=== PATIENT | male | born 1950 | race Caucasian/White ===

== ENCOUNTER 2022-06-11 11:00 | Outpatient (RCR) | payer SELFPAY | END 2022-06-11 15:46 | disposition home or self-care (01) | LOC: ANHCPREHAB 11:00 | DX: I50.9 Heart failure, unspecified (principal) | CPT/HCPCS: 99199 ==

== ENCOUNTER 2024-07-27 16:20 | Emergency (ER) | payer OTHER, MEDICARE, SELFPAY ==
--- NOTE | ~2024-07-27 | XR_ITS ---
XR tibia fibula RT 2V Ordering provider: Adryan Jose APRN History: . injury, swelling, pain since yesterday . Comparison: None. FINDINGS: BONES: No acute fracture or dislocation. JOINT SPACES: Normal. SOFT TISSUES: Soft tissue density is seen laterally which measures 13 x 3.2 centimeters. This is most likely a hematoma. IMPRESSION: No acute osseous abnormality right leg. Hematoma or soft tissue mass in the lateral aspect of the leg. Reviewed, dictated and finalized at location A.
[2024-07-27 16:31] VITALS: BP 174/81; PULSE 66; RESP 18; TEMP 36.4; O2SAT 100
[2024-07-27] MEDS: TETANUS/DIPHTHERIA TOXOIDS ADSORB 0.5 ML SYRINGE (*BKC) IM (17:25)
--- NOTE | 2024-07-27 18:30 | ED_ITS ---
HPI - Extremity Injury (Lower) General Chief Complaint: Extremity Injury, Lower Stated Complaint: R Leg Pain Time Seen by Provider: 07/27/24 17:10 Source: patient and RN notes reviewed Mode of arrival: ambulatory Limitations: no limitations History of Present Illness HPI Narrative: 74-year-old male presents Express Care with spouse complaining of a right lower leg injury. 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 Patient denied any apparent pain or injury yesterday. However today he noticed that he has developed bruising and swelling to his right lower leg below the knee. Patient is taking Eliquis for atrial fibrillation. Patient denies any excruciating pain he reports his leg feeling tight and swollen. Patient has also noticed blistering to the bruising. Patient denies any pain behind his leg or any swelling above his knee. Patient denies any numbness or tingling, pain that is out proportion, weakness, or any other injuries. Patient denies any history of blood clots, no recent surgeries. Patient is unsure when his last tetanus shot was up-to-date. Related Data Allergies Allergy/AdvReac Type Severity Reaction Status Date / Time No Known Allergies Allergy Verified 07/27/24 16:28 Review of Systems Review of Systems: CONSTITUTIONAL: Denies fever, chills, or sweats. EYES: Denies visual changes, redness, or discharge. ENT: Denies rhinorrhea, congestion, sore throat, or otalgia. CARDIOVASCULAR: Denies chest pain, palpitations, or edema. RESPIRATORY: Denies cough or dyspnea. GASTROINTESTINAL: Denies abdominal pain, nausea, vomiting, or diarrhea. GENITOURINARY: Denies dysuria or hematuria. SKIN: Denies rash or itching. MUSCULOSKELETAL: Denies back pain, joint pain, or myalgia. Positive for right lower leg injury and swelling. NEUROLOGIC: Denies headache, numbness, or weakness. PSYCHIATRIC: Denies anxiety or depression. All other systems reviewed are negative, except as documented in HPI. [facility] Past Medical History Medical History A-fib CHF (congestive heart failure) Family History Family History Father Alcoholism Social History Social History Smoking packs per day: 1 Smoking cigarettes per day: 20.0 Years smoked: 30 Smoking pack-years: 30.00 Smoking status: Former smoker Tobacco type: cigarettes Smoking end date: 03/25/09 Alcohol intake: current Drinks per week: 2 Alcohol use details: beer and wine Substance use: never Substance use type: does not use Do You Feel Safe in your Home?: Yes Lack of Transportation: No Lack of Food: Never True Current Housing: I Have Housing Concerned About Future Housing: No Difficulty Paying Gas/Electric Bills: No Difficulty Paying for Meds: No Currently Unemployed: No Education: High School Diploma/GED Difficulty w/ Childcare or Family Care: No Living arrangements: with family Occupation/Education: occupation Gender identity (if verbalized by the patient): Male Sexual Orientation (if Verbalized by the Patient): Straight or Heterosexual Comments At the time of my signature, I reviewed and agree with the nursing past medical, surgical, social, and family history. There is no relevant family history pertinent to the patient complaint. Exam Narrative: GENERAL: This is a well-nourished, well-developed adult, in no apparent distress. They are non ill-appearing, nontoxic appearing. HEAD: normocephalic, atraumatic. EYES: Sclera clear/white. Conjunctiva normal. Vision is grossly intact. Extraocular movements intact EARS: External ears normal, Hearing grossly intact. NOSE: External nose normal THROAT: Mucous membranes moist NECK: Number range of motion CARDIOVASCULAR: Regular rate and rhythm RESPIRATORY: My normal respiratory exam SKIN: warm, Dry, intact with no suspicious lesions or rash, good texture and turgor. NEURO: awake, alert, and oriented to person, place and time. There were no obvious focal neurologic abnormalities. EXTREMITIES: Right lower leg: Right calf circumference 45 cm. Left calf circumference 44 cm. Right lower leg: There is edema that is nonpitting below the knee to the patient's right lower leg extending into the right ankle. Bruising to the distal lateral surface of the lower leg. Ecchymosis present in multiple small blistering coming from the bruising. Mild tenderness to palpation to the ecchymosis. Blisters are intact. No obvious deformity to the leg. Pedal pulse 2 +and palpable. Neurovascular status intact distal to the injury. No swelling above the knee. No palpable cord. BACK: Nontender without deformity. No CVA tenderness. Course Course Emergency Course: Portions of this record may have been created with voice recognition software Level of Care: Express Care Visit Vital Signs Vital signs: Vital Signs Temperature 97.6 F 07/27/24 16:31 Pulse Rate 66 07/27/24 16:31 Respiratory Rate 18 07/27/24 16:31 Blood Pressure 174/81 H 07/27/24 16:31 Pulse Oximetry 100 07/27/24 16:31 Oxygen Delivery Room Air 07/27/24 16:31 Temperature 97.6 F 07/27/24 16:31 Pulse Rate 66 07/27/24 16:31 Respiratory Rate 18 07/27/24 16:31 Blood Pressure 174/81 H 07/27/24 16:31 Pulse Oximetry 100 07/27/24 16:31 Oxygen Delivery Room Air 07/27/24 16:31 Reviewed MDM - Extremity Injury (Lower) MDM Narrative Medical decision making narrative: Wells criteria score of -2. Low suspicion for DVT or compartment syndrome. Neurovascular status is intact distal to the injury, pedal pulses 2+ palpable. Patient is having no excruciating pain or pain that is out of proportion to injury to his lower right lower leg. Patient denies any paresthesia, diminished sensation, or weakness to the extremity. X-ray is negative for any fractures, hematoma is noted on x-ray. Likely the swelling is worsening due to his Eliquis. Discussed physical exam findings. Advised supportive measures and signs/symptoms to go to the ER. Pt is appropriate for outpt treatment and f/u. Differential Diagnosis Differential diagnosis: Likely other (Compartment syndrome, tibia/fibula fracture, hematoma) Imaging Data Radiologist's impression: ITS Impressions Tibia/Fibula X-Ray 07/27/24 17:00 IMPRESSION: No acute osseous abnormality right leg. Hematoma or soft tissue mass in the lateral aspect of the leg. Critical Care Time Critical Care Time Critical Care Time: No Discharge Plan Discharge Clinical Impression: Injury of leg, right Qualifiers: Encounter type: initial encounter Qualified Code(s): S89.91XA - Unspecified injury of right lower leg, initial encounter Patient Disposition: Home Condition: Stable Instructions: Hematoma (ED) Additional Instructions: Your x-rays negative for any fractures or acute findings. Please wear compression stocking to help with swelling. Keep the legs elevated at night or when you are not walking around. The bruising and swelling is likely because she take Eliquis. Please take Tylenol as needed for pain. You may ice the affected extremity 20 minutes on and 20 minutes off. Please cover the blisters with a nonadherent dressing. If they pop please make sure they are covered in apply antibiotic ointment to it to prevent further infection. Review developed excruciating pain, worsening swelling, pain behind your leg, your entire leg becomes swollen, you develop shortness of breath, chest pain, fevers or discharge please go to the ER immediately. Follow-up with primary care provider in 3-5 days. Your tetanus was updated today. Patient Language: Luxembourgish Prescriptions: No Action acyclovir 5 % cream 1 applic topical DAILY PRN (Reason: outbreaks) Qty: 5 5RF betamethasone valerate 0.1 % ointment 1 applic topical DAILY PRN (Reason: rash) Qty: 45 3RF Eliquis 5 mg tablet 5 mg PO BID Qty: 90 1RF cholecalciferol (vitamin D3) 1,250 mcg (50,000 unit) capsule See Rx Instructions .ROUTE .COMPLEX Qty: 12 1RF Dose Instruction: TAKE 1 CAPSULE BY MOUTH WEEKLY Rx Instructions: TAKE 1 CAPSULE BY MOUTH WEEKLY metoprolol succinate 25 mg tablet extended release 24 hr See Rx Instructions .ROUTE .COMPLEX Qty: 90 1RF Dose Instruction: TAKE 1 TABLET BY MOUTH EVERYDAY AT BEDTIME Rx Instructions: TAKE 1 TABLET BY MOUTH EVERYDAY AT BEDTIME atorvastatin 40 mg tablet 40 mg PO HS Qty: 90 1RF losartan 25 mg tablet 25 mg PO DAILY Qty: 90 1RF Follow-up/Referrals: PHYSICIAN,GLASS FURNACE OPERATOR [Primary Care Provider] - Stand Alone Forms: Work/School Release IP Time of Disposition: 17:18
== END 2024-07-27 17:43 | disposition home or self-care (01) ==
DX: S80.11XA Contusion of right lower leg, initial encounter (principal); W22.09XA Striking against other stationary object, initial encounter; Y99.0 Civilian activity done for income or pay; Z23 Encounter for immunization; I48.91 Unspecified atrial fibrillation; I50.9 Heart failure, unspecified; Z79.01 Long term (current) use of anticoagulants; Z87.891 Personal history of nicotine dependence
CPT/HCPCS: 73590; 90471; 90714; 99213; G0463

== ENCOUNTER 2024-07-29 13:22 | Emergency (ER) | payer MEDICARE, SELFPAY ==
--- OUTSIDE RECORDS SUMMARY | 2024-07-29 13:34 | XMS_ITS | Patient Health Record ---
Author Organization UNLISTED FACILITY Address [address] [facility] [address] [address] Care Team Providers Care Accounting Specialist Name Role Phone Unpanelled Primary Care Provider Unavailabl e Reason For Referral No Information Medications Medication SIG (Take, Route, Frequency, Duration) Notes Start Date End Date Status Naproxen 500MG Tablet Naproxen 500MG TabletOriginal MedicationNaproxen 500MG Tablet *Reorder from [employer] for eRx and Interaction Alerts* 07/24/2019 Active Fluticasone Propionate 50MCGACT Suspension Fluticasone Propionate 50MCGACT SuspensionOriginal MedicationFluticasone Propionate 50MCGACT Suspension *Reorder from [employer] for eRx and Interaction Alerts* 07/24/2019 Active Problems Problem Type SNOMED Code ICD Code Onset Dates Problem Status W/U Status Risk Notes Problem 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) 0 Active confirmed Problem Polyp of colon (11303458) Polyp of colon (K63.5) 0 Active confirmed Problem Tremor (44272840) Tremor, unspecified (R25.1) 0 Active confirmed Problem Mixed hyperlipidemia (448933043) Hyperlipidemia, mixed (E78.2) 0 Active confirmed Problem Headache (48839634) Headache, unspecified (R51.9) 0 Active confirmed Problem Tension-type headache (114075210) Headache, tension (G44.209) 0 Active confirmed Problem Allergic rhinitis (00614653) Other allergic rhinitis (J30.8) 0 Active confirmed Plan Of Treatment No Information Insurance Providers Payer Name Payer Address Payer Phone Subscriber Number Group Number Insured Name Patient Relationship to Insured Coverage Start Date Coverage End Date [facility] [employer] [address] SIVA HENDERSON [id number] MATI HENDERSON Self - patient is the insured
--- OUTSIDE RECORDS SUMMARY | 2024-07-29 13:34 | XMS_ITS | Clinical Summary ---
Author Organization [facility] [employer] Address [address] [place] [address] Care Team Providers Care Director Surgical Name Role Phone Sundeep Whitfield MD Primary Care Provider [phone] Source Comments [facility] [employer],non-owned Affiliates and Associated Physician Practices is amultiple site organization consisting of ambulatory clinics and hospital sitesin [place], [place], [place] and [place]. This disclosure is being madepursuant to the Care Everywhere program and may not contain all information available regarding this patient. Last updated 17.[facility] [employer] Allergies No known active allergies Medications * Be aware that medications may not be up to date on this document. Alwaysverify current medications with the patient. Multiple Vitamin (MULTI-VITAMIN DAILY PO) Take 1 capsule by mouth once daily Active betamethasone valerate (Valisone) 0.1 % creamIndications:Ot her psoriasis Apply to affected area 2 times daily 45 g 4 4 Active atorvastatin (Lipitor) 40 MG tabletIndications:H yperlipidemia, unspecified hyperlipidemia type Take 1 (one) tablet by mouth once daily 90 tablet 1 4 Active losartan (Cozaar) 25 MG tabletIndications:P ersistent atrial fibrillation (HCC) Take 1 (one) tablet by mouth once daily 90 tablet 1 4 Active metoprolol succinate XL 24hr (Toprol XL) 25 MG tabletIndications:P ersistent atrial fibrillation (HCC) Take 1 (one) tablet by mouth at bedtime 90 tablet 1 4 Active naproxen (Naprosyn) 500 MG tablet TAKE 1 (ONE) TABLET BY MOUTH NEEDED (HEADACHE) 30 tablet 1 4 Active vitamin D, ergocalciferol, (Drisdol) 1.25 MG (16100 UT) capsule Take 1 (one) capsule by mouth every 30 days Active Turmeric (QC TUMERIC COMPLEX PO) Active apixaban (Eliquis) 5 MG tablet Take 1 (one) tablet by mouth 2 times daily 20 tablet 5 Active furosemide (Lasix) 40 MG tabletIndications:C hronic HFrEF (heart failure with reduced ejection fraction) (HCC) Take 0.5 (one-half) tablet by mouth as needed 15 tablet 6 5 Active Active Problems Problem Noted Date Diagnosed Date S/P ablation of atrial flutter 01/06/2024 Senile purpura 05/20/2023 Atherosclerosis of aorta 10/03/2022 Typical atrial flutter 11/21/2021 Chronic HFrEF (heart failure with reduced ejection fraction) 11/21/2021 Chronic anticoagulation 11/21/2021 On amiodarone therapy 11/21/2021 Persistent atrial fibrillation 10/31/2021 Atrial fibrillation with RVR 10/31/2021 Herpes simplex without complication 04/07/2021 Hypertrophy of prostate with out urinary obstruction and other lower urinary tract symptoms (LUTS) 04/07/2021 Other and unspecified hyperlipidemia 04/07/2021 Other psoriasis 04/07/2021 Tobacco user 04/07/2021 Resolved Problems Problem Noted Date Diagnosed Date Resolved Date Presence of heart assist device 10/03/2022 05/18/2024 Encounters Date Type Department Care Team Description 05/18/2024 11:50 AM ENGINE REPAIRER Office Visit [facility] [address] [place] [id number] Martin Collins MD Chronic systolic heart failure (Primary Dx); Persistent atrial fibrillation; Chronic anticoagulation; Mixed hyperlipidemia; S/P ablation of atrial fibrillation; Heart failure with improved ejection fraction (HFimpEF); Chronic HFrEF (heart failure with reduced ejection fraction) 05/04/2024 9:38 AM ENGINE REPAIRER - 05/04/2024 11:59 PM ENGINE REPAIRER Hospital Encounter [facility] [address] [address] Martin Collins MD Discharge Disposition: Home or Self Care from Last 3 Months Immunizations Immunization Administration Dates Next Due Covid Pfizer primary monoval ent 12+ yr 0.3mL Purple cap 01/10/2021,06/03/2020,05/06/2020 HEP A VACCINE, ADULT 05/04/2005 HEP A/HEP B 03/02/2022 INFLUENZA VACCINE 02/05/2022, 1,02/27/2010,2008 INFLUENZA VACCINE, ADJUVANTE D, QUADR. (FLUAD QUADRIVALENT; 65Y+) (AIIV4) 02/06/2022,01/10/2021 PNEUMOCOCCAL PPSV23 11/29/2018 PNEUMOCOCCAL PPV VACCINE 10/20/2008 Pneumococcal Pcv13 Conj 12/22/2016 ZOSTER HISTORIC VACCINE 01/31/2019 Zoster Hzv Vacc Recombinant Inj Im 11/29/2018 Family History Medical History Relation Name Comments Leukemia Father None Known Mother Relation Name Status Comments Brother Alive Father Mother Sister Alive Social History Tobacco Use Types Packs/Day Years Used Date Smoking Tobacco: Former Cigarettes 1 25 1 - 01/10/2009 Smokeless Tobacco: Never Tobacco Cessation:Counseling Given: Not Answered Alcohol Use Standard Drinks/Week Comments Yes 3 (1 standard drink = 0.6 oz pur e alcohol) PHQ-2 Answer Date Recorded Patient Health Questionnaire-2 Score 0 05/20/2023 Hunger Vital Sign Answer Date Recorded Within the past 12 months, y ou worried that your food would run out before you got the money to buy more. Never true 01/18/20 22 Within the past 12 months, t he food you bought just didn't last and you didn't have money to get more. 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 Not on file Not on file Not on file Last Filed Vital Signs Vital Sign Reading Time Taken Comments Blood Pressure 136/68 05/18/2024 1:12 PM ENGINE REPAIRER Pulse 62 05/18/2024 1:12 PM ENGINE REPAIRER Temperature 36.5 C (97.7 F) 01/06/2024 11:32 AM CDT Respiratory Rate 18 05/20/2023 11:3 5 AM ENGINE REPAIRER Oxygen Saturation 97% 05/18/2024 1:12 PM ENGINE REPAIRER Inhaled Oxygen Concentration - - Weight 107.1 kg (236 lb 3.2 oz) 05/18/2024 1:12 PM ENGINE REPAIRER Height 175.3 cm (5' 9 ) 05/18/2024 1:12 PM ENGINE REPAIRER Body Mass Index 34.88 05/18/2024 1:12 PM ENGINE REPAIRER Plan of Treatment Upcoming Encounters Date Type Department Care Team (Late st Contact Info) Description 11/16/2024 10:00 AM CDT Office Visit [facility] [address] [place] [address] Beth Bain, [employer] [address] [facility] [address] [place] [address] Health Maintenance Due Date Last Done Comments COLOGUARD (AGES 45-75) - COLON CA SCREENING 1950 CT COLONOGRAPHY - COLON CA SCREENING 1950 FIT - COLON CA SCREENING 1950 FLEX SIG - COLON CA SCREENING 1950 HEPATITIS C SCREENING 04/25/1969 DTAP/TDAP/TD VACCINES (1 - Tdap) 1970 Respiratory Syncytial Virus (RSV) Vaccine Pt: or over 60 yrs (1 - Risk 60-74 years 1-dose series) 2011 HEPATITIS B VACCINE (2 of 3 - Hep B Twinrix 3-dose series) 03/30/2022 03/02/2022 COVID-19 VACCINE (4 - season) 2023 01/10/2021, 06/03/2020, 05/06/2020 DEPRESSION SCREENING 03/25/2024 05/20/2023, 10/03/2022, 07/21/2021 MEDICARE AWV CALENDAR YEAR 2024 05/20/2023, 10/03/2022, 07/21/2021, Additional history exists COLON MONITORING 10/19/2026 10/19/2016 COLONOSCOPY - COLON CA SCREENING 10/19/2026 10/19/2016 Colorectal Cancer Screening 10/19/2026 SCREENING FOR DIABETES 05/20/2027 5, 01/10/2024, 12/10/2023, Additional history exists PNEUMOCOCCAL VACCINE 50+ Completed 019, 12/22/2016, 10/20/2008 ZOSTER VACCINE Completed 01/31/2019, 11/29/2018 AAA SCREENING Completed 10/31/2022 INFLUENZA VACCINE Completed 11/26/2023, , 02/06/2022, Additional history exists HIB VACCINE Aged Out No longer eligi ble based on patient's age to complete this topic HPV VACCINE Aged Out No longer eligi ble based on patient's age to complete this topic MENINGOCOCCAL (Group B) VACCINE SHARED DECISION-MAKING Aged Out No longer eligible based on patient's age to complete this topic MENINGOCOCCAL GROUPS A/C/Y/W VACCINE Aged Out No longer eligible based on patient's age to complete this topic Procedures Procedure Name Priority Date/Time Associated Diagnosis Comments BASIC METABOLIC PANEL (CALCIUM TOTAL) Routine 05/20/2024 8:03 AM ENGINE REPAIRER Chronic systolic heart failure Persistent atrial fibrillation Chronic anticoagulation Mixed hyperlipidemia S/P ablation of atrial fibrillation Heart failure with improved ejection fraction (HFimpEF) Chronic HFrEF (heart failure with reduced ejection fraction) ECHO COMPLETE Routine 05/04/2024 10:39 AM ENGINE REPAIRER Chronic systolic heart failure Persistent atrial fibrillation Chronic anticoagulation Mixed hyperlipidemia AAA SCREENING Routine 10/31/2022 11:3 6 AM CDT Screening for abdominal aortic aneurysm COLONOSCOPY 10/19/2016 from Last 3 Months or Most Recently Relevant to Health Maintenance Results * (ABNORMAL) BASIC METABOLIC PANEL (CALCIUM TOTAL) (05/20/2024 8:03 AM ENGINE REPAIRER) Glucose 105(H) 70 - 99 mg/dL [facility] INSURANCE BILL BUN 17 8 - 27 mg/dL [facility] INSURANCE BILL Creatinine 0.89 0.76 - 1.27 mg/dL [facility] INSURANCE BILL eGFR by CKD-EPI 90 >59 mL/min/1.7 3 [facility] INSURANCE BILL BUN/Creatinine Ratio 19 10 - 24 [facility] INSURANCE BILL Sodium 141 134 - 144 mmol/L [facility] INSURANCE BILL Potassium 4.4 3.5 - 5.2 mmol/L [facility] INSURANCE BILL Chloride 105 96 - 106 mmol/L [facility] INSURANCE BILL CO2 22 20 - 29 mmol/L [facility] INSURANCE BILL Calcium 9.3 8.6 - 10.2 mg/dL [facility] INSURANCE BILL Blood BLOOD SPECIMEN / Unknown 05/20/2024 8:03 AM ENGINE REPAIRER 05/20/2024 Narrative [facility] INSURANCE BILL - 05/21/2024 3:06 AM ENGINE REPAIRER Performed at: 01 - [facility] [address] [place], [place] [id number] [employer] Supervisor: Candido Benavidez PhD, Phone: [phone] Martin Collins MD LAB - CHEMISTRY ORDERABLES Fi nal Result [facility] INSURANCE BILL [address] [place] [address] * ECHO COMPLETE (05/04/2024 10:39 AM ENGINE REPAIRER) IVSd 2D 0.871 cm SSM CV FUJ I PACS LVIDd 4.88 cm SSM CV FUJ I PACS LVIDs 3.784 cm SSM CV FUJ I PACS LVOT diam 2.525 cm SSM CV FUJ I PACS LVPWd 0.877 cm SSM CV FUJ I PACS LV biplane EF 63.532 % SSM CV FUJI PACS LV A2C EF 61.371 % SSM CV FUJ I PACS LV A4C EF 65.924 % SSM CV FUJ I PACS LV EDV A2C 110.643 ml SSM CV FU JI PACS LV EDV A4C 117.309 ml SSM CV FU JI PACS LV ESV A2C 42.74 ml SSM CV FU JI PACS LV ESV A4C 39.975 ml SSM CV FU JI PACS LVOT pk reji 72.81 cm/s SSM CV F UJI PACS LVOT VTI 16.562 cm SSM CV FUJ I PACS LA size 4.447 cm SSM CV FUJ I PACS LA vol BP 97.964 ml SSM CV FUJ I PACS AV mn grad 1.389 mmHg SSM CV FU JI PACS AV pk reji 83.806 cm/s SSM CV FUJ I PACS AV VTI 18.609 cm SSM CV FUJ I PACS MV A pk reji 52.293 cm/s SSM CV F UJI PACS MV E pk reji 69.697 cm/s SSM CV F UJI PACS MV E' lateral reji 9.556 cm/s SS M CV FUJI PACS PV pk reji 58.956 cm/s SSM CV FUJ I PACS TAPSE 2.157 cm SSM CV FUJ I PACS TR pk reji 225.217 cm/s SSM CV FUJ I PACS Ascending aorta 3.315 cm SSM CV FUJI PACS IVC Diam Expiration 2.62 cm SSM CV FUJI PACS LA vol index 0.042 l/m SSM CV FUJI PACS Dimensionless Index 0.89 unitless SSM CV FUJI PACS Myocardial strain charge 2 unitless SSM CV FUJI PACS Anatomical Region Laterality Modality Ultrasound 05/04/2024 9:57 AM ENGINE REPAIRER Narrative 05/04/2024 1:25 PM ENGINE REPAIRER Summary * The left ventricle is normal in size, with normal systolic function and an estimated ejection fraction of 64 % by biplane method of disks. Left ventricular wall motion is normal. * The left ventricular diastolic function is normal. * Right ventricle is normal in size with normal systolic function. * The pulmonary artery systolic pressure is normal, 28 mmHg. * There is mild mitral valve regurgitation. Patient Info Name: Kumar Weaver Age: 74 years : 1950 Gender: Male Ht: 69 in Wt: 235 lb BSA: 2.32 m2 HR: 53 bpm BP: 138 / 74 mmHg Heart Rhythm: Ectopy Exam Date: 05/04/2024 9:57 AM Patient Status: O/P Study Site: [facility] Primary Location: [facility] EStudy Info Technical Quality: Adequate Exam Type: ECHO COMPLETE Indications I50.22 - Chronic systolic heart failure (HCC) E78.2 - Mixed hyperlipidemia Z79.01 - Chronic anticoagulation I48.19 - Persistent atrial fibrillation (HCC) Procedure(s) * A complete 2D, color Doppler, spectral Doppler, and M-Mode transthoracic echocardiogram was performed. Staff Referring Physician: Martin Collins Ordering Provider: Martin Collins Attending Physician: Martin Collins Leaf Tier: Jan Burks Left Ventricle The left ventricle is normal in size. Left ventricular systolic function is normal with an estimated ejection fraction of 64 % by biplane method of disks. The left ventricular mass is normal. Left ventricular segmental wall motion is normal. The left ventricular diastolic function is normal. Right Ventricle The right ventricle is normal in size. Right ventricular systolic function is normal. Left Atrium The left atrium is normal in size with a left atrial volume index of 42 ml/m2 by BP MOD. Right Atrium The right atrium is normal in size. Atrial Septum Intact interatrial septum visualized by 2D and color Doppler imaging. Aortic Valve The aortic valve is trileaflet. There is no aortic valve stenosis. There is no aortic valve regurgitation. Pulmonic Valve The pulmonic valve is normal. There is no pulmonic valve stenosis. There is no pulmonic regurgitation. Mitral Valve The mitral valve is normal. There is no mitral valve stenosis. There is mild mitral valve regurgitation. Tricuspid Valve The tricuspid valve is normal. There is no tricuspid valve regurgitation. The pulmonary artery systolic pressure is normal, 28 mmHg. Inferior Vena Cava The inferior vena cava is dilated (> 2.1 cm). There is > 50% collapse of the IVC upon inspiration with an estimated right atrial pressure of 8 mmHg. Pericardium/Pleural There is no pericardial effusion. Aorta The aortic root at the sinus of Valsalva is normal in size. The ascending aorta is normal in size. Measurements Left Ventricular Outflow Tract Name Value Normal LVOT 2D LVOT Diameter 2.5 cm LVOT Area 5.0 cm2 LVOT Doppler LVOT Peak Velocity 0.7 m/s LVOT Peak Gradient 2 mmHg LVOT Mean Velocity 49.17 cm/s LVOT Mean Gradient 1 mmHg LVOT VTI 16.6 cm LVOT VTI/AV VTI Ratio 0.9 LVOT Stroke Volume 83 ml LVOT Stroke Volume Index 36 ml/m2 35-58 LVOT CO 14.8 l/min LVOT CI 6.4 l/min/m2 Pulmonic Valve Name Value Normal PV Doppler PV Peak Velocity 0.6 m/s PV Peak Gradient 1 mmHg PV Regurgitation Doppler GA End Diastolic Gradient 1 mmHg Mitral Valve Name Value Normal MV Diastolic Function MV E Peak Velocity 0.7 m/sec MV A Peak Velocity 0.5 m/sec MV E/A 1.3 MV Decel Time (PW) 196 ms MV Annular TDI MV Septal e' Velocity 10 cm/s >=8 MV E/e' (Septal) 7 <=8 MV Lateral e' Velocity 10 cm/s >=10 MV E/e' (Lateral) 7 <=8 MV e' Average 10 cm/s MV E/e' (Average) 7 Tricuspid Valve Name Value Normal TV Regurgitation Doppler TR Peak Velocity 2.3 m/s TR Peak Gradient 20 mmHg Estimated PAP/RSVP RA Pressure 8 mmHg <=5 PA Systolic Pressure 28 mmHg <35 RV Systolic Pressure 28 mmHg <36 TV Annular TDI TV Lateral Sarahy s' Velocity 16 cm/s 10-19 Pulmonary Vessels Name Value Normal Pulmonary Artery Doppler PA End Diastolic Pressure for GA 9 mmHg Aorta Name Value Normal Ascending Aorta Ao Root Diameter (2D) 3.6 cm Ao Root Diam Index (2D) 1.5 cm/m2 Asc Ao Diameter 3.3 cm 2.2-3.8 Asc Ao Diameter Index 1.4 cm/m2 1.1-1.9 Venous Name Value Normal IVC/SVC IVC Diameter 2.6 cm <=2.1 Aortic Valve Name Value Normal AV Doppler AV Peak Velocity 0.84 m/s AV Peak Gradient 3 mmHg AV Mean Gradient 1 mmHg AV VTI 19 cm AV Area (Cont Eq VTI) 4.46 cm2 >=2.00 AV Area (Cont Eq Reji) 4.35 cm2 AV DI (VTI) 0.89 AV DI (Reji) 0.87 AV Regurgitation 2D LVOT Area 5.00 cm2 Ventricles Name Value Normal LV Dimensions 2D/MM IVS Diastolic Thickness (2D) 0.9 cm 0.6-1.0 LVID Diastole (2D) 4.9 cm 4.2-5.8 LVPW Diastolic Thickness (2D) 0.9 cm 0.6-1.0 LVID Systole (2D) 3.8 cm 2.5-4.0 LV Mass (2D Cubed) 146 g 88-224 LV Mass Index (2D Cubed) 63 g/m2 49-115 Relative Wall Thickness (2D) 0.36 <=0.42 LV Fractional Shortening/Ejection Fraction 2D/MM LV Fractional Shortening (2D) 22 % 25-43 LV EF (2D Teichgildaz) 45 % 52-72 LV Diastolic Volume (4C MOD) 117 ml LV EF (4C MOD) 66 % LV Diastolic Volume (2C MOD) 111 ml LV EF (2C MOD) 61 % LV Diastolic Volume (BP MOD) 118 ml 62-150 LV Diastolic Volume Index (BP MOD) 51 ml/m2 34-74 LV Systolic Volume (BP MOD) 43 ml 21-61 LV Systolic Volume Index (BP MOD) 19 ml/m2 11-31 LV EF (BP MOD) 64 % 52-72 LV Diastolic Length (4C) 9.0 cm LV Systolic Length (4C) 6.9 cm LV Stroke Volume (4C MOD) 77 ml RV Dimensions 2D/MM TAPSE 2.2 cm >=1.7 Atria Name Value Normal LA Dimensions LA Dimension (2D) 4.4 cm 3.0-4.1 LA Dimen Index (2D) 1.9 cm/m2 LA Volume (BP MOD) 98 ml LA Volume Index (BP MOD) 42 ml/m2 16-34 Report Signatures Finalized by Pk Lehman on 05/04/2024 01:25 PM Procedure Note Pk Lehman MD - 05/05/2024 Summary * The left ventricle is normal in size, with normal systolic functionand an estimated ejection fraction of 64 % by biplane method of disks. Left ventricular wall motion is normal. * The left ventricular diastolic function is normal. * Right ventricle is normal in size with normal systolic function. * The pulmonary artery systolic pressure is normal, 28 mmHg. * There is mild mitral valve regurgitation. Patient Info Name: Kumar Weaver Age: 74 years : 1950 Gender: Male Ht: 69 in Wt: 235 lb BSA: 2.32 m2 HR: 53 bpm BP: 138 / 74 mmHg Heart Rhythm: Ectopy Exam Date: 05/04/2024 9:57 AM Patient Status: O/P Study Site: [facility] Primary Location: [facility] EStudy Info Technical Quality: Adequate Exam Type: ECHO COMPLETE Indications I50.22 - Chronic systolic heart failure (HCC) E78.2 - Mixed hyperlipidemia Z79.01 - Chronic anticoagulation I48.19 - Persistent atrial fibrillation (HCC) Procedure(s) * A complete 2D, color Doppler, spectral Doppler, and M-Modetransthoracic echocardiogram was performed. Staff Referring Physician: Martin Collins Ordering Provider: Martin Collins Attending Physician: Martin Collins Leaf Tier: Jan Burks Left Ventricle The left ventricle is normal in size. Left ventricular systolic functionis normal with an estimated ejection fraction of 64 % by biplane method ofdisks. The left ventricular mass is normal. Left ventricular segmental wallmotion is normal. The left ventricular diastolic function is normal. Right Ventricle The right ventricle is normal in size. Right ventricular systolicfunction is normal. Left Atrium The left atrium is normal in size with a left atrial volume index of42 ml/m2 by BP MOD. Right Atrium The right atrium is normal in size. Atrial Septum Intact interatrial septum visualized by 2D and color Doppler imaging. Aortic Valve The aortic valve is trileaflet. There is no aortic valve stenosis. Thereis no aortic valve regurgitation. Pulmonic Valve The pulmonic valve is normal. There is no pulmonic valve stenosis. Thereis no pulmonic regurgitation. Mitral Valve The mitral valve is normal. There is no mitral valve stenosis. There ismild mitral valve regurgitation. Tricuspid Valve The tricuspid valve is normal. There is no tricuspid valveregurgitation. The pulmonary artery systolic pressure is normal, 28 mmHg. Inferior Vena Cava The inferior vena cava is dilated (> 2.1 cm). There is > 50% collapse ofthe IVC upon inspiration with an estimated right atrial pressure of 8 mmHg. Pericardium/Pleural There is no pericardial effusion. Aorta The aortic root at the sinus of Valsalva is normal in size. Theascending aorta is normal in size. Measurements Left Ventricular Outflow Tract Name Value Normal LVOT 2D LVOT Diameter 2.5 cm LVOT Area 5.0 cm2 LVOT Doppler LVOT Peak Velocity 0.7 m/s LVOT Peak Gradient 2 mmHg LVOT Mean Velocity 49.17 cm/s LVOT Mean Gradient 1 mmHg LVOT VTI 16.6 cm LVOT VTI/AV VTI Ratio 0.9 LVOT Stroke Volume 83 ml LVOT Stroke Volume Index 36 ml/m2 35-58 LVOT CO 14.8 l/min LVOT CI 6.4 l/min/m2 Pulmonic Valve Name Value Normal PV Doppler PV Peak Velocity 0.6 m/s PV Peak Gradient 1 mmHg PV Regurgitation Doppler GA End Diastolic Gradient 1 mmHg Mitral Valve Name Value Normal MV Diastolic Function MV E Peak Velocity 0.7 m/sec MV A Peak Velocity 0.5 m/sec MV E/A 1.3 MV Decel Time (PW) 196 ms MV Annular TDI MV Septal e' Velocity 10 cm/s >=8 MV E/e' (Septal) 7 <=8 MV Lateral e' Velocity 10 cm/s >=10 MV E/e' (Lateral) 7 <=8 MV e' Average 10 cm/s MV E/e' (Average) 7 Tricuspid Valve Name Value Normal TV Regurgitation Doppler TR Peak Velocity 2.3 m/s TR Peak Gradient 20 mmHg Estimated PAP/RSVP RA Pressure 8 mmHg <=5 PA Systolic Pressure 28 mmHg <35 RV Systolic Pressure 28 mmHg <36 TV Annular TDI TV Lateral Sarahy s' Velocity 16 cm/s 10-19 Pulmonary Vessels Name Value Normal Pulmonary Artery Doppler PA End Diastolic Pressure for GA 9 mmHg Aorta Name Value Normal Ascending Aorta Ao Root Diameter (2D) 3.6 cm Ao Root Diam Index (2D) 1.5 cm/m2 Asc Ao Diameter 3.3 cm 2.2-3.8 Asc Ao Diameter Index 1.4 cm/m2 1.1-1.9 Venous Name Value Normal IVC/SVC IVC Diameter 2.6 cm <=2.1 Aortic Valve Name Value Normal AV Doppler AV Peak Velocity 0.84 m/s AV Peak Gradient 3 mmHg AV Mean Gradient 1 mmHg AV VTI 19 cm AV Area (Cont Eq VTI) 4.46 cm2 >=2.00 AV Area (Cont Eq Reji) 4.35 cm2 AV DI (VTI) 0.89 AV DI (Reji) 0.87 AV Regurgitation 2D LVOT Area 5.00 cm2 Ventricles Name Value Normal LV Dimensions 2D/MM IVS Diastolic Thickness (2D) 0.9 cm 0.6-1.0 LVID Diastole (2D) 4.9 cm 4.2-5.8 LVPW Diastolic Thickness (2D) 0.9 cm 0.6-1.0 LVID Systole (2D) 3.8 cm 2.5-4.0 LV Mass (2D Cubed) 146 g 88-224 LV Mass Index (2D Cubed) 63 g/m2 49-115 Relative Wall Thickness (2D) 0.36 <=0.42 LV Fractional Shortening/Ejection Fraction 2D/MM LV Fractional Shortening (2D) 22 % 25-43 LV EF (2D Teicholz) 45 % 52-72 LV Diastolic Volume (4C MOD) 117 ml LV EF (4C MOD) 66 % LV Diastolic Volume (2C MOD) 111 ml LV EF (2C MOD) 61 % LV Diastolic Volume (BP MOD) 118 ml 62-150 LV Diastolic Volume Index (BP MOD) 51 ml/m2 34-74 LV Systolic Volume (BP MOD) 43 ml 21-61 LV Systolic Volume Index (BP MOD) 19 ml/m2 11-31 LV EF (BP MOD) 64 % 52-72 LV Diastolic Length (4C) 9.0 cm LV Systolic Length (4C) 6.9 cm LV Stroke Volume (4C MOD) 77 ml RV Dimensions 2D/MM TAPSE 2.2 cm >=1.7 Atria Name Value Normal LA Dimensions LA Dimension (2D) 4.4 cm 3.0-4.1 LA Dimen Index (2D) 1.9 cm/m2 LA Volume (BP MOD) 98 ml LA Volume Index (BP MOD) 42 ml/m2 16-34 Report Signatures Finalized by Pk Lehman on 05/04/2024 01:25 PM Martin Collins MD ECHO CUPID Final Result * US AAA SCREENING (10/31/2022 11:36 AM CDT) Anatomical Region Laterality Modality Abdomen Ultrasound 10/31/2022 11:4 1 AM CDT Impressions 10/31/2022 11:50 AM CDT IMPRESSION: Mild atherosclerosis with no aneurysm, dissection or other abnormality identified. > Interpreting Provider: Manjinder Bueno MD on 10/31/2022 11:50 AM Narrative 10/31/2022 11:50 AM CDT PROCEDURE: US AAA SCREENING, DATE/TIME OF EXAM: 10/31/2022 11:36 AM, LOCATION [facility] INDICATION: Z13.6: Encounter for screening for cardiovascular disorders ADDITIONAL CLINICAL INFORMATION: Ordering Provider Reason For Exam: Technologist Note: Additional: ULTRASOUND ABDOMINAL AORTA (RETROPERITONEAL, LIMITED): History: Screening for AAA. Technique: Ultrasound evaluation of the abdominal aorta was performed on 10/31/2022. No relevant prior study is available. Findings: Mild atherosclerosis is seen with no aneurysm or other findings to suggest leakage or dissection. Cross-sectional diameters measure: Aorta: 2.5 x 2.4 cm proximally. 2.4 x 2.2 cm in the midportion. 2.3 x 2.2 cm in the distal aspect. Iliac arteries: 1.4 x 1.0 cm on the right. 1.4 x 1.1 cm on the left. Procedure Note Manjinder Bueno MD - 10/31/2022 PROCEDURE: US AAA SCREENING, DATE/TIME OF EXAM: 10/31/2022 11:36 AM, LOCATION [facility] INDICATION: Z13.6: Encounter for screening for cardiovascular disorders ADDITIONAL CLINICAL INFORMATION: Ordering Provider Reason For Exam: Technologist Note: Additional: ULTRASOUND ABDOMINAL AORTA (RETROPERITONEAL, LIMITED): History: Screening for AAA. Technique: Ultrasound evaluation of the abdominal aorta was performed on 10/31/2022. No relevant prior study is available. Findings: Mild atherosclerosis is seen with no aneurysm or other findings tosuggest leakage or dissection. Cross-sectional diameters measure: Aorta: 2.5 x 2.4 cm proximally. 2.4 x 2.2 cm in the midportion. 2.3 x 2.2 cm in the distal aspect. Iliac arteries: 1.4 x 1.0 cm on the right. 1.4 x 1.1 cm on the left. IMPRESSION: Mild atherosclerosis with no aneurysm, dissection or other abnormality identified. > Interpreting Provider: Manjinder Bueno MD on 10/31/2022 11:50 AM Sami Whitehead MD ORDERABLES Final Resu lt * COLONOSCOPY (10/19/2016) 10/19/2016 Narrative 10/19/2016 Ordered by an unspecified provider. us Scanned Document SCANNING ONLY Final Result from Last 3 Months or Most Recently Relevant to Health Maintenance Insurance AETNA MEDICARE ADV AETNA MEDICARE ADV Advance Directives * Full Code (Latest Code Status on File) Date Activated Date Inactivated Comments 01/16/2022 4:41 PM 01/17/2022 1:46 PM * Full Code Date Activated Date Inactivated Comments 10/31/2021 8:55 AM 11/04/2021 11:16 AM Care Teams Director Surgical Relationship Specialty Start Date End Date Sundeep Whitfield MD [address] [place] [id number] PCP - General Family Medicine 11/18/23
--- OUTSIDE RECORDS SUMMARY | 2024-07-29 13:34 | XMS_ITS | Continuity of Care Document ---
Author Name [facility] Organization [facility] Care Team Providers Care Corporate Investigator Name Role Phone [facility] Unavailable Unavailable Problems Combined list of problems from Department of Defense and Veterans Affairs facilities. It does not include entries that were removed or entered in error. Problem Status Onset Date Problem Type Date of Resolution Comments Source Alopecia Areata * (ICD-9-CM 704.01/SNOMED 2 M-70200) Active Condition [facility] Benign prostatic hyperplasia Active Condition [facility] Benign prostatic hyperplasia Active Condition [facility] Chest Wall Pain (ICD-9-CM 786.52) Active Condition [facility] Dermatitis * (ICD-9-CM 692.9) Active Condition [facility] Health Maintenance (ICD-9-CM V65.9) Active Condition [facility] Herpes Simplex * (ICD-9-CM 054.9) Active Condition [facility] Hyperglycemia * (ICD-9-CM 790.29) Active Condition [facility] Hyperlipidemia Active Condition [facility] Male erectile disorder (ICD-9-CM 302.72/607.84) Active Condition [facility] Obstructive chronic bronchitis, without mention of acute exacerbation (ICD-9-CM Active Condition [facility] OSTEOARTHROSIS-MUL T SITE Active Condition [facility] Other abnormality of urination Active Condition [facility] Overweight (ICD-9-CM 278.02) Active Condition [facility] Psoriasis * (ICD-9-CM 696.1) Active Condition [facility] Tobacco Abuse Active Condition [facility] Tobacco Use Disorder * (ICD-9-CM 305.1) Active Condition [facility] 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 Medication Details Route Status Patient Instructions Prescription Expires Prescription Number Last Dispense Date Ordering Provider Order Date Order Qty Source B COMPLEX TAB TAKE ONE TABLET BY MOUTH EVERY DAY ORAL ACTIVE GACETA,AL DENIS B 2011 [facility] COENZYME Q10 CAP/TAB TAKE ONE TABLET BY MOUTH EVERY DAY ORAL ACTIVE GACETA,AL DENIS B 2009 [facility] FISH OIL 1000MG CAP,ORAL TAKE 1 CAPSULE BY MOUTH EVERY DAY ORAL ACTIVE GACETA,AL DENIS B 2009 [facility] LYSINE TAB TAKE 1 TAB BY MOUTH EVERY DAY ORAL ACTIVE GACETA,AL DENIS B 2011 [facility] NON-VA VITAMIN D TAB TAKE 1000 UNITS BY MOUTH EVERY DAY ORAL ACTIVE GACETA,AL DENIS B 2009 [facility] VITAMIN B-12 CAP/ TAB TAKE 1 TAB BY MOUTH EVERY DAY ORAL ACTIVE GACETA,AL DENIS B 2011 [facility] VITAMIN E 400UNT CAP TAKE 1 CAPSULE BY MOUTH EVERY DAY ORAL ACTIVE GACETA,AL DENIS B 2009 [facility] Immunizations Combined list of available immunizations from the Department of Defense and Veterans Affairs facilities. Immunization Series Date Given Administered By Site Reaction Lot Number CVX Code Drug Refractory Manager Status Comments Source INFLUENZA, UNSPECIFIED FORMULATION 2010 88 complet ed [facility] INFLUENZA, UNSPECIFIED FORMULATION 2009 88 complet ed [facility] FLU,3 YRS (HISTORICAL) 2008 88 complet ed [facility] PNEUMOCOCCAL, UNSPECIFIED FORMULATION 2008 109 complet ed [facility] TD(ADULT) UNSPECIFIED FORMULATION 2003 139 complet ed [facility] TD(ADULT) UNSPECIFIED FORMULATION 2003 139 complet ed Patient states he received shot < 10 years ago. [facility] Social History Combined list of available smoking, tobacco, and other social history from Department of Defense and Veterans Affairs facilities. Social History Type Response Date Comment Sourc e Tobacco smoking status [facility] TOBACCO CURRENT USER 07/30/2011 today. [facility] History of tobacco use TOBACCO CURRENT USER 02/06/2011 today [facility] History of tobacco use TOBACCO CURRENT USER 02/27/2010 Today. [facility] History of tobacco use CURRENT TOBACCO USE 06/21/2009 [facility] History of tobacco use TOBACCO CURRENT USER 10/20/2008 current [facility] History of tobacco use TOBACCO CURRENT USER 10/08/[address] [facility] History of tobacco use TOBACCO CURRENT USER 08/05/2006 TODAY [facility] History of tobacco use TOBACCO CURRENT USER 07/04/[address] [facility] History of tobacco use LIFETIME NON-TOBACCO USER 10/12/2004 [facility] History of tobacco use CURRENTLY SMOKES 05/28/2003 35+ YRS [facility] History of tobacco use CURRENTLY SMOKES 06/11/2002 since age 19 [facility] History of tobacco use CURRENTLY SMOKES 09/09/2001 31 years [facility] History of tobacco use CURRENTLY SMOKES 07/21/2001 36 years [facility]
--- OUTSIDE RECORDS SUMMARY | 2024-07-29 13:34 | XMS_ITS | CCD ---
Author Name Interface, [id number] [place] [address] [facility] [place] [address] Allergies and Adverse Reactions Medication/Group Name Reaction Severity Date No known allergies Reason for Visit Functional Status Date Name Score 03/07/2018 Karnofsky performance status 100 Medications Date Name Route Dose Frequency Instructions Start Date End Date Status 018 Cholecalciferol Oral PO 1.0 CAPSULE (S) daily 03/07/20 18 active 018 Probiotics Oral PO 1.0 CAPSULE (S) daily 03/07/20 18 active 018 Miscellaneous Drug PO 1.0 TABLET( S) daily 03/07/20 18 active 018 Jgled-G-Mncyksjanm ase Oral PO 1.0 TABLET( S) as directed 03/07/20 18 active 018 [place]-3 Fatty Acids Oral PO 1.0 CAPSULE (S) daily 03/07/20 18 active Problems Diagnosis Status Date of Diagnosi s Body mass index [BMI] 32.0-32.9, adult Inactive Social History Date Name Value Sex Male
--- OUTSIDE RECORDS SUMMARY | 2024-07-29 13:34 | XMS_ITS | CCD ---
Author Name Interface, [id number] [facility] [place] [address] [facility] [place] [address] Allergies and Adverse Reactions Reason for Visit Functional Status Medications Problems Social History
[2024-07-29 13:39] VITALS: BP 144/67; PULSE 70; RESP 17; TEMP 36.4; O2SAT 97
--- NOTE | 2024-07-29 14:33 | ED.LOWEXIN ---
HPI - Extremity Injury (Lower) General Chief Complaint: Extremity Injury, Lower <Destini Pereira PA-C - Last Filed: 07/29/24 18:00> Stated Complaint: Swelling-discoloration right foot <Destini Pereira PA-C - Last Filed: 07/29/24 18:00> Time Seen by Provider: 07/29/24 14:33 <Destini Pereira PA-C - Last Filed: 07/29/24 18:00> Focused HPI: This is a 74 year old male that presents to the ER for swelling of the right lower leg. Reports he bumped his nj a couple days ago. He was seen at urgent care and has been icing his leg without relief. Reports he takes Eliquis. He woke this morning with worsening swelling and bruising to the lower leg which prompted him to be seen. Also reports a blister to the area. GENERAL: Well-appearing, well-nourished, and in no acute distress. HEAD: Normocephalic, atraumatic. CHEST: No respiratory distress. HEART: Regular rate EXTREMITIES: Right lower leg with contusion to the lateral nj with overlying blister. Bruising and swelling into the foot. Normal DP pulse. Normal sensation NEURO: ?Alert and oriented x3. Patient screened in triage and initial orders placed.? ?Additional care and disposition to be based upon?diagnostic testing and treatment. <Destini Pereira PA-C - Last Filed: 07/29/24 18:00> History of Present Illness HPI Narrative: Agree with HPI <Jonah Bennett MD - Last Filed: 07/29/24 23:00> Related Data Allergies/Adverse Reactions: Allergies Allergy/AdvReac Type Severity Reaction Status Date / Time No Known Allergies Allergy Verified 07/27/24 16:28 <Destini Pereira PA-C - Last Filed: 07/29/24 18:00> Review of Systems Review of Systems: All systems reviewed & are unremarkable except as noted in HPI and below <Destini Pereira PA-C - Last Filed: 07/29/24 18:00> PMFSH Past Medical History Medical History: Medical History A-fib CHF (congestive heart failure) <Destini Pereira PA-C - Last Filed: 07/29/24 18:00> Family History Family History: Family History Father Alcoholism <Destini Pereira PA-C - Last Filed: 07/29/24 18:00> Social History Social History: Social History Smoking packs per day: 1 Smoking cigarettes per day: 20.0 Years smoked: 30 Smoking pack-years: 30.00 Smoking status: Former smoker Tobacco type: cigarettes Smoking end date: 03/25/09 Alcohol intake: current Drinks per week: 2 Alcohol use details: beer and wine Substance use: never Substance use type: does not use Do You Feel Safe in your Home?: Yes Lack of Transportation: No Lack of Food: Never True Current Housing: I Have Housing Concerned About Future Housing: No Difficulty Paying Gas/Electric Bills: No Difficulty Paying for Meds: No Currently Unemployed: No Education: High School Diploma/GED Difficulty w/ Childcare or Family Care: No Living arrangements: with family Occupation/Education: occupation Gender identity (if verbalized by the patient): Male Sexual Orientation (if Verbalized by the Patient): Straight or Heterosexual <Destini Pereira PA-C - Last Filed: 07/29/24 18:00> Exam Narrative: GENERAL: Well-appearing, well-nourished, and in no acute distress. HEAD: Normocephalic, atraumatic. ENT: Mucous membranes moist. EXTREMITIES: Normal range of motion. Edema of the right lower extremity but no low the knee with contusion extending into the foot. There is a bullae to the right lateral nj. SKIN: Warm, dry, no rash. NEURO: Alert and oriented x3. PSYCH: Normal mood and affect. <Jonah Bennett MD - Last Filed: 07/29/24 23:00> Course Course Emergency Course: No cellulitis. [place] to have underlying hematoma. Recommend elevation and compression. Follow-up with PCP. <Jonah Bennett MD - Last Filed: 07/29/24 23:00> Vital Signs Vital signs: Vital Signs Temperature 97.6 F 07/29/24 13:39 Pulse Rate 70 07/29/24 13:39 Respiratory Rate 17 07/29/24 13:39 Blood Pressure 144/67 H 07/29/24 13:39 Pulse Oximetry 97 07/29/24 13:39 Oxygen Delivery Room Air 07/29/24 13:39 Temperature 97.6 F 07/29/24 13:39 Pulse Rate 72 07/29/24 17:31 Respiratory Rate 18 07/29/24 17:31 Blood Pressure 138/74 07/29/24 17:31 Pulse Oximetry 100 07/29/24 17:31 Oxygen Delivery Room Air 07/29/24 13:39 <Destini Pereira PA-C - Last Filed: 07/29/24 18:00> Vital Signs Temperature 97.6 F 07/29/24 13:39 Pulse Rate 70 07/29/24 13:39 Respiratory Rate 17 07/29/24 13:39 Blood Pressure 144/67 H 07/29/24 13:39 Pulse Oximetry 97 07/29/24 13:39 Oxygen Delivery Room Air 07/29/24 13:39 Temperature 97.6 F 07/29/24 13:39 Pulse Rate 72 07/29/24 17:31 Respiratory Rate 18 07/29/24 17:31 Blood Pressure 138/74 07/29/24 17:31 Pulse Oximetry 100 07/29/24 17:31 Oxygen Delivery Room Air 07/29/24 13:39 <Jonah Bennett MD - Last Filed: 07/29/24 23:00> MDM - Extremity Injury (Lower) Lab Data Result diagrams: 07/29/24 15:19 07/29/24 15:19 <Destini Pereira PA-C - Last Filed: 07/29/24 18:00> Labs: Lab Results 07/29/24 Range/Units 15:19 WBC 7.8 (4.5-10.0) K/mm3 RBC 4.02 L (4.6-6.20) M/mm3 Hgb 11.5 L (14.0-18.0) g/dL Hct 37.1 L (42.0-52.0) % MCV 92.3 (80-100) fl MCH 28.6 (26-34) pg MCHC 31.0 L (32-36) g/dl RDW 12.7 (11.5-14.5) % Plt Count 245 (150-375) k/mm3 MPV 10.3 (7.4-10.4) fl Immature Gran % (Auto) 0.4 (0-0.5) % Neut % (Auto) 66.2 (45.5-73.1) % Lymph % (Auto) 21.1 (18.3-44.2) % [place] % (Auto) 10.5 H (2.6-8.5) % Eos % (Auto) 1.4 (0-4.4) % Baso % (Auto) 0.4 (0.2-1.2) % Lymph # (Auto) 1.64 (0.9-3.2) K/mm3 [place] # (Auto) 0.8 H (0.1-0.6) K/mm3 Eos # (Auto) 0.1 (0-0.3) K/mm3 Baso # (Auto) 0.0 (0.0-0.1) K/mm3 Abs Immat Gran (auto) 0.03 (0.00-0.031) K/mm3 Absolute Neuts (auto) 5.2 (1.3-6.7) K/mm3 Absolute Nucleated RBC 0.000 (0.0-0.012) K/mm3 Nucleated RBC % 0.0 (0.0-0.2) % ESR 17 (0-20) mm/hr PT 14.0 (11.1-14.7) Seconds INR 1.0 APTT 31.2 (22.3-36.8) Seconds Sodium 140 (137-145) mmol/L Potassium 4.7 (3.4-5.0) mmol/L Chloride 106 (98-107) mmol/L Carbon Dioxide 27 (22-30) mmol/L Anion Gap 7 (4-12) mmol/L BUN 14 (9-20) mg/dL Creatinine 0.81 (0.7-1.3) mg/dL Estim Creat Clear Calc 82 ml/min Estimated GFR > 60 (59 - ) Glucose 78 (65-110) mg/dL Calcium 8.8 (8.4-10.2) mg/dL Total Bilirubin 0.7 (0.2-1.3) mg/dL AST 21 (17-59) U/L ALT 17 (6-50) U/L Alkaline Phosphatase 66 (38-126) U/L C-Reactive Protein < 0.5 (<1.0) mg/dL Total Protein 7.0 (6.3-8.2) g/dL Albumin 4.2 (3.5-5.1) g/dL <Destini Pereira PA-C - Last Filed: 07/29/24 18:00> Lab Results 07/29/24 Range/Units 15:19 WBC 7.8 (4.5-10.0) K/mm3 RBC 4.02 L (4.6-6.20) M/mm3 Hgb 11.5 L (14.0-18.0) g/dL Hct 37.1 L (42.0-52.0) % MCV 92.3 (80-100) fl MCH 28.6 (26-34) pg MCHC 31.0 L (32-36) g/dl RDW 12.7 (11.5-14.5) % Plt Count 245 (150-375) k/mm3 MPV 10.3 (7.4-10.4) fl Immature Gran % (Auto) 0.4 (0-0.5) % Neut % (Auto) 66.2 (45.5-73.1) % Lymph % (Auto) 21.1 (18.3-44.2) % [place] % (Auto) 10.5 H (2.6-8.5) % Eos % (Auto) 1.4 (0-4.4) % Baso % (Auto) 0.4 (0.2-1.2) % Lymph # (Auto) 1.64 (0.9-3.2) K/mm3 [place] # (Auto) 0.8 H (0.1-0.6) K/mm3 Eos # (Auto) 0.1 (0-0.3) K/mm3 Baso # (Auto) 0.0 (0.0-0.1) K/mm3 Abs Immat Gran (auto) 0.03 (0.00-0.031) K/mm3 Absolute Neuts (auto) 5.2 (1.3-6.7) K/mm3 Absolute Nucleated RBC 0.000 (0.0-0.012) K/mm3 Nucleated RBC % 0.0 (0.0-0.2) % ESR 17 (0-20) mm/hr PT 14.0 (11.1-14.7) Seconds INR 1.0 APTT 31.2 (22.3-36.8) Seconds Sodium 140 (137-145) mmol/L Potassium 4.7 (3.4-5.0) mmol/L Chloride 106 (98-107) mmol/L Carbon Dioxide 27 (22-30) mmol/L Anion Gap 7 (4-12) mmol/L BUN 14 (9-20) mg/dL Creatinine 0.81 (0.7-1.3) mg/dL Estim Creat Clear Calc 82 ml/min Estimated GFR > 60 (59 - ) Glucose 78 (65-110) mg/dL Calcium 8.8 (8.4-10.2) mg/dL Total Bilirubin 0.7 (0.2-1.3) mg/dL AST 21 (17-59) U/L ALT 17 (6-50) U/L Alkaline Phosphatase 66 (38-126) U/L C-Reactive Protein < 0.5 (<1.0) mg/dL Total Protein 7.0 (6.3-8.2) g/dL Albumin 4.2 (3.5-5.1) g/dL <Jonah Bennett MD - Last Filed: 07/29/24 23:00> Discharge Plan Discharge Clinical Impression: Hematoma of leg Qualifiers: Encounter type: initial encounter Laterality: right Qualified Code(s): S80.11XA - Contusion of right lower leg, initial encounter <Detsini Pereira PA-C - Last Filed: 07/29/24 18:00> Patient Disposition: Home <Destini Pereira PA-C - Last Filed: 07/29/24 18:00> Condition: Stable <Destini Pereira PA-C - Last Filed: 07/29/24 18:00> Instructions: Hematoma (ED) <Destini Pereira PA-C - Last Filed: 07/29/24 18:00> Additional Instructions: Wrap her leg with a an Octavio wrap or compression sock. Elevate your leg when sleeping. Follow-up with her primary care doctor. May want to hold 1 dose of Eliquis. There is no sign of infection. Return ER if the leg is red and hot, there is fever 100.4? F, or you have increased pain. <Destini Pereira PA-C - Last Filed: 07/29/24 18:00> Patient Language: Icelandic <Destini Pereira PA-C - Last Filed: 07/29/24 18:00> Prescriptions: No Action acyclovir 5 % cream 1 applic topical DAILY PRN (Reason: outbreaks) Qty: 5 5RF betamethasone valerate 0.1 % ointment 1 applic topical DAILY PRN (Reason: rash) Qty: 45 3RF Eliquis 5 mg tablet 5 mg PO BID Qty: 90 1RF cholecalciferol (vitamin D3) 1,250 mcg (50,000 unit) capsule See Rx Instructions .ROUTE .COMPLEX Qty: 12 1RF Dose Instruction: TAKE 1 CAPSULE BY MOUTH WEEKLY Rx Instructions: TAKE 1 CAPSULE BY MOUTH WEEKLY metoprolol succinate 25 mg tablet extended release 24 hr See Rx Instructions .ROUTE .COMPLEX Qty: 90 1RF Dose Instruction: TAKE 1 TABLET BY MOUTH EVERYDAY AT BEDTIME Rx Instructions: TAKE 1 TABLET BY MOUTH EVERYDAY AT BEDTIME atorvastatin 40 mg tablet 40 mg PO HS Qty: 90 1RF losartan 25 mg tablet 25 mg PO DAILY Qty: 90 1RF <Destini Pereira PA-C - Last Filed: 07/29/24 18:00> Follow-up/Referrals: Sundeep Whitfield MD [Primary Care Provider] - 1 Week <Destini Pereira PA-C - Last Filed: 07/29/24 18:00> Stand Alone Forms: Work/School Release IP <Destini Pereira PA-C - Last Filed: 07/29/24 18:00>
--- OUTSIDE RECORDS SUMMARY | 2024-07-29 14:43 | XMS_ITS | Clinical Summary ---
Author Organization [facility] Address [address] [place] [address] Care Team Providers Care Credit Checker Name Role Phone Sundeep Whitfield MD Primary Care Provider [phone] Source Comments [facility],non-owned Affiliates and Associated Physician Practices is amultiple site organization consisting of ambulatory clinics and hospital sitesin [place], [place], [place] and [place]. This disclosure is being madepursuant to the Care Everywhere program and may not contain all information available regarding this patient. Last updated 17.[email or web address] Allergies No known active allergies Medications * [...] Active vitamin D, ergocalciferol, (Drisdol) 1.25 MG (77626 UT) capsule Take 1 (one) capsule by [...] Department Care Team Description 05/18/2024 11:50 AM PILOT Office Visit [facility] [address] [place] [id number] Martin Collins MD Chronic systolic heart failure (Primary Dx); Persistent atrial fibrillation; Chronic anticoagulation; Mixed hyperlipidemia; S/P ablation of atrial fibrillation; Heart failure with improved ejection fraction (HFimpEF); Chronic HFrEF (heart failure with reduced ejection fraction) 05/04/2024 9:38 AM PILOT - 05/04/2024 11:59 PM PILOT Hospital Encounter [facility] [address] [address] Martin Collins MD Discharge Disposition: Home or [...] 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 Not on file Not on file Not on file Last Filed Vital Signs Vital Sign Reading Time Taken Comments Blood Pressure 136/68 05/18/2024 1:12 PM PILOT Pulse 62 05/18/2024 1:12 PM PILOT Temperature 36.5 C (97.7 F) 01/06/2024 11:32 AM CDT Respiratory Rate 18 05/20/2023 11:3 5 AM PILOT Oxygen Saturation 97% 05/18/2024 1:12 PM PILOT Inhaled Oxygen Concentration - - Weight 107.1 kg (236 lb 3.2 oz) 05/18/2024 1:12 PM PILOT Height 175.3 cm (5' 9 ) 05/18/2024 1:12 PM PILOT Body Mass Index 34.88 05/18/2024 1:12 PM PILOT Plan of Treatment Upcoming Encounters Date Type Department Care Team (Late st Contact Info) Description 11/16/2024 10:00 AM CDT Office Visit [facility] [address] [place] [address] Beth Bain, [employer] [address] [facility] [address] [place] [address] Health Maintenance Due Date Last Done Comments [...] PANEL (CALCIUM TOTAL) Routine 05/20/2024 8:03 AM PILOT Chronic systolic heart failure Persistent atrial fibrillation Chronic anticoagulation Mixed hyperlipidemia S/P ablation of atrial fibrillation Heart failure with improved ejection fraction (HFimpEF) Chronic HFrEF (heart failure with reduced ejection fraction) ECHO COMPLETE Routine 05/04/2024 10:39 AM PILOT Chronic systolic heart failure Persistent atrial fibrillation Chronic anticoagulation Mixed hyperlipidemia AAA SCREENING Routine 10/31/2022 11:3 6 AM CDT Screening for abdominal aortic aneurysm COLONOSCOPY 10/19/2016 from Last 3 Months or Most Recently Relevant to Health Maintenance Results * (ABNORMAL) BASIC METABOLIC PANEL (CALCIUM TOTAL) (05/20/2024 8:03 AM PILOT) Glucose 105(H) 70 - 99 mg/dL [facility] [...] BLOOD SPECIMEN / Unknown 05/20/2024 8:03 AM PILOT 05/20/2024 Narrative [facility] INSURANCE BILL - 05/21/2024 3:06 AM PILOT Performed at: 01 - [facility] [address] [place], [place] [id number] Plant Wrapper: Candido Benavidez PhD, Phone: [phone] Martin Collins MD LAB - CHEMISTRY ORDERABLES Fi nal Result [facility] INSURANCE BILL [address] [place] [address] * ECHO COMPLETE (05/04/2024 10:39 AM PILOT) IVSd 2D 0.871 cm [facility] CV FUJ [...] Region Laterality Modality Ultrasound 05/04/2024 9:57 AM PILOT Narrative 05/04/2024 1:25 PM PILOT Summary * The left ventricle is normal [...] 9:57 AM Patient Status: O/P Study Site: [facility] Primary Location: [facility] EStudy Info Technical Quality: Adequate Exam Type: ECHO COMPLETE Indications I50.22 - Chronic systolic heart failure (HCC) E78.2 - Mixed hyperlipidemia Z79.01 - Chronic anticoagulation I48.19 - Persistent atrial fibrillation (HCC) Procedure(s) * A complete 2D, color Doppler, spectral Doppler, and M-Mode transthoracic echocardiogram was performed. Staff Referring Physician: Martin Collins Ordering Provider: Martin Collins Attending Physician: Martin Collins Laborer Plumbing: Jan Burks Left Ventricle The left ventricle [...] Peak Gradient 1 mmHg PV Regurgitation Doppler MA End Diastolic Gradient 1 mmHg Mitral Valve [...] Artery Doppler PA End Diastolic Pressure for MA 9 mmHg Aorta Name Value Normal Ascending [...] 9:57 AM Patient Status: O/P Study Site: [facility] Primary Location: [facility] EStudy Info Technical Quality: Adequate Exam Type: ECHO COMPLETE Indications I50.22 - Chronic systolic heart failure (HCC) E78.2 - Mixed hyperlipidemia Z79.01 - Chronic anticoagulation I48.19 - Persistent atrial fibrillation (HCC) Procedure(s) * A complete 2D, color Doppler, spectral Doppler, and M-Modetransthoracic echocardiogram was performed. Staff Referring Physician: Martin Collins Ordering Provider: Martin Collins Attending Physician: Martin Collins Laborer Plumbing: Jan Burks Left Ventricle The left ventricle [...] Peak Gradient 1 mmHg PV Regurgitation Doppler MA End Diastolic Gradient 1 mmHg Mitral Valve [...] Artery Doppler PA End Diastolic Pressure for MA 9 mmHg Aorta Name Value Normal Ascending [...] DATE/TIME OF EXAM: 10/31/2022 11:36 AM, LOCATION [facility] INDICATION: Z13.6: Encounter for screening for cardiovascular [...] DATE/TIME OF EXAM: 10/31/2022 11:36 AM, LOCATION [facility] INDICATION: Z13.6: Encounter for screening for cardiovascular [...] 8:55 AM 11/04/2021 11:16 AM Care Teams Credit Checker Relationship Specialty Start Date End Date Sundeep Whitfield MD [address] [place] [id number] PCP - General Family Medicine 11/18/23
--- OUTSIDE RECORDS SUMMARY | 2024-07-29 14:43 | XMS_ITS | CCD ---
Author Name Interface, [id number] [facility] [place] [address] [facility] [place] [address] Allergies and Adverse Reactions Medication/Group Name Reaction [...] TABLET( S) daily 03/07/20 18 active 018 Aalng-O-Zgegmxljht ase Oral PO 1.0 TABLET( S) as directed 03/07/20 18 active 018 [place]-3 Fatty Acids Oral PO 1.0 CAPSULE (S) daily 03/07/20 18 active Problems Diagnosis Status Date of Diagnosi s Body mass index [BMI] 32.0-32.9, adult Inactive Social History Date Name Value Sex Male
--- OUTSIDE RECORDS SUMMARY | 2024-07-29 14:43 | XMS_ITS | CCD ---
Author Name Interface, [id number] [facility] [place] [address] [facility] [place] [address] Allergies and Adverse Reactions Reason for Visit Functional Status Medications Problems Social History
--- OUTSIDE RECORDS SUMMARY | 2024-07-29 14:43 | XMS_ITS | Continuity of Care Document ---
Author Name [facility] Organization [facility] Care Team Providers Care Payroll And Benefits Coordinator Name Role Phone [facility] Unavailable Unavailable Problems Combined list of problems from Department of Defense and Veterans Affairs facilities. It does not include entries that were removed or entered in error. Problem Status Onset Date Problem Type Date of Resolution Comments Source Alopecia Areata * (ICD-9-CM 704.01/SNOMED 2 M-48703) Active Condition [facility] Benign prostatic hyperplasia Active Condition [facility] Benign prostatic hyperplasia Active Condition [facility] Chest Wall Pain (ICD-9-CM 786.52) Active Condition [facility] Dermatitis * (ICD-9-CM 692.9) Active Condition [facility] Health Maintenance (ICD-9-CM V65.9) Active Condition [facility] Herpes Simplex * (ICD-9-CM 054.9) Active Condition [facility] Hyperglycemia * (ICD-9-CM 790.29) Active Condition [facility] Hyperlipidemia Active Condition [facility] Male erectile disorder (ICD-9-CM 302.72/607.84) Active Condition [facility] Obstructive chronic bronchitis, without mention of acute exacerbation (ICD-9-CM Active Condition [facility] OSTEOARTHROSIS-MUL T SITE Active Condition [facility] Other abnormality of urination Active Condition [facility] Overweight (ICD-9-CM 278.02) Active Condition [facility] Psoriasis * (ICD-9-CM 696.1) Active Condition [facility] Tobacco Abuse Active Condition [facility] Tobacco Use Disorder * (ICD-9-CM 305.1) Active Condition [facility] 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) Inactive Condition 02/27/2010 [facility] Medications Combined list of outpatient medications [...] DAY ORAL ACTIVE GACETA,AL DENIS B 2011 [facility] COENZYME Q10 CAP/TAB TAKE ONE TABLET BY MOUTH EVERY DAY ORAL ACTIVE GACETA,AL DENIS B 2009 [facility] FISH OIL 1000MG CAP,ORAL TAKE 1 CAPSULE BY MOUTH EVERY DAY ORAL ACTIVE GACETA,AL DENIS B 2009 [facility] LYSINE TAB TAKE 1 TAB BY MOUTH EVERY DAY ORAL ACTIVE GACETA,AL DENIS B 2011 [facility] NON-VA VITAMIN D TAB TAKE 1000 UNITS BY MOUTH EVERY DAY ORAL ACTIVE GACETA,AL DENIS B 2009 [facility] VITAMIN B-12 CAP/ TAB TAKE 1 TAB BY MOUTH EVERY DAY ORAL ACTIVE GACETA,AL DENIS B 2011 [facility] VITAMIN E 400UNT CAP TAKE 1 CAPSULE BY MOUTH EVERY DAY ORAL ACTIVE GACETA,AL DENIS B 2009 [facility] Immunizations Combined list of available immunizations from the Department of Defense and Veterans Affairs facilities. Immunization Series Date Given Administered By Site Reaction Lot Number CVX Code Drug Fiber Optics Technician Status Comments Source INFLUENZA, UNSPECIFIED FORMULATION 2010 88 complet ed [facility] INFLUENZA, UNSPECIFIED FORMULATION 2009 88 complet ed [facility] FLU,3 YRS (HISTORICAL) 2008 88 complet ed [facility] PNEUMOCOCCAL, UNSPECIFIED FORMULATION 2008 109 complet ed [facility] TD(ADULT) UNSPECIFIED FORMULATION 2003 139 complet ed [facility] TD(ADULT) UNSPECIFIED FORMULATION 2003 139 complet ed Patient states he received shot < 10 years ago. [facility] Social History Combined list of available smoking, tobacco, and other social history from Department of Defense and Veterans Affairs facilities. Social History Type Response Date Comment Sourc e Tobacco smoking status NHIS TOBACCO CURRENT USER 07/30/2011 today. [facility] History of tobacco use TOBACCO CURRENT USER 02/06/2011 today [facility] History of tobacco use TOBACCO CURRENT USER 02/27/2010 Today. [facility] History of tobacco use CURRENT TOBACCO USE 06/21/2009 [facility] History of tobacco use TOBACCO CURRENT USER 10/20/2008 current [facility] History of tobacco use TOBACCO CURRENT USER 10/08/2008 current [facility] History of tobacco use TOBACCO CURRENT USER 08/05/2006 TODAY [facility] History of tobacco use TOBACCO CURRENT USER 07/04/2006 today [facility] History of tobacco use LIFETIME NON-TOBACCO USER 10/12/2004 [facility] History of tobacco use CURRENTLY SMOKES 05/28/2003 36+ YRS [facility] History of tobacco use CURRENTLY SMOKES 06/11/2002 since age 19 [facility] History of tobacco use CURRENTLY SMOKES 09/09/2001 31 years [facility] History of tobacco use CURRENTLY SMOKES 07/21/2001 36 years [facility]
[2024-07-29 15:34] LABS: Basophils Percent Auto 0.4 % (0.2-1.2); Eosinophils Absolute Auto 0.1 K/mm3 (0-0.3); Eosinophils Percent Auto 1.4 % (0-4.4); Hematocrit 37.1 % (42.0-52.0); Hemoglobin 11.5 g/dL (14.0-18.0); Immature Granulocyte Absolute 0.03 K/mm3 (0.00-0.031); Immature Granulocyte Percent A 0.4 % (0-0.5); Lymphocytes Absolute Auto 1.64 K/mm3 (0.9-3.2); Lymphocytes Percent Auto 21.1 % (18.3-44.2); Mean Corpuscular Hemoglobin 28.6 pg (26-34); Mean Corpuscular Volume 92.3 fl (80-100); Mean Platelet Volume 10.3 fl (7.4-10.4); Monocytes Absolute Auto 0.8 K/mm3 (0.1-0.6); Monocytes Percent Auto 10.5 % (2.6-8.5); Neutrophils Absolute Auto 5.2 K/mm3 (1.3-6.7); Neutrophils Percent Auto 66.2 % (45.5-73.1); Platelet Count Result 245 k/mm3 (150-375); Red Blood Count 4.02 M/mm3 (4.6-6.20); Red Cell Distribution Width 12.7 % (11.5-14.5); White Blood Count 7.8 K/mm3 (4.5-10.0)
[2024-07-29 15:48] LABS: Alanine Aminotransferase 17 U/L (6-50); Albumin Level 4.2 g/dL (3.5-5.1); Alkaline Phosphatase 66 U/L (38-126); Anion Gap 7 mmol/L (4-12); Aspartate Amino Transferase 21 U/L (17-59); Bilirubin,Total 0.7 mg/dL (0.2-1.3); Blood Urea Nitrogen 14 mg/dL (9-20); CRP < 0.5 mg/dL (<1.0); Calcium 8.8 mg/dL (8.4-10.2); Carbon Dioxide 27 mmol/L (22-30); Chloride 106 mmol/L (98-107); Estimated CRCL calculation 82 ml/min; Estimated Glomerular Filt Rate > 60; Glucose 78 mg/dL (65-110); Potassium 4.7 mmol/L (3.4-5.0); Sodium 140 mmol/L (137-145)
[2024-07-29 16:02] LABS: Partial Thromboplastin Time 31.2 Seconds (22.3-36.8)
[2024-07-29 16:14] LABS: Erythrocyte Sedimentation Rate 17 mm/hr (0-20)
[2024-07-29 17:31] VITALS: BP 138/74; PULSE 72; RESP 18; O2SAT 100
== END 2024-07-29 17:35 | disposition home or self-care (01) ==
PROVIDERS: Physician Assistant; Emergency Provider Emergency Medicine; PCP Family Medicine
DX: S80.11XA Contusion of right lower leg, initial encounter (principal); I48.91 Unspecified atrial fibrillation; I50.9 Heart failure, unspecified; Z87.891 Personal history of nicotine dependence; Z79.01 Long term (current) use of anticoagulants; Z79.899 Other long term (current) drug therapy; W22.8XXA Striking against or struck by other objects, initial encounter
CPT/HCPCS: 36415; 80053; 85025; 85610; 85652; 85730; 86140; 99283

== ENCOUNTER 2024-08-03 12:05 | Outpatient (CLI) | payer MEDICARE, SELFPAY ==
--- NOTE | ~2024-08-03 | XR_ITS ---
Right ankle Technique: AP, oblique, and lateral views were obtained. Clinical History: Injury Findings: No acute fracture or dislocation is seen. Osseous alignment is anatomic. Ankle mortise and other visualized joint spaces are preserved. Soft tissues are otherwise unremarkable. Impression: Unremarkable right ankle. Reviewed, dictated and finalized at location . Impression: Unremarkable right ankle.
--- NOTE | ~2024-08-03 | XR_ITS ---
XR tibia fibula RT 2V Ordering provider: Thalia Sen History: . S89.91XA - Unspecified injury of right lower leg, initial... . Comparison: None. FINDINGS: BONES: No acute fracture or dislocation. JOINT SPACES: Normal. SOFT TISSUES: Normal. IMPRESSION: No acute osseous abnormality right leg. Reviewed, dictated and finalized at location A.
== END 2024-08-03 12:06 | disposition home or self-care (01) ==
LOC: MICIMG 12:07
PROVIDERS: PCP Family Medicine; Visit Provider Family Medicine
DX: S89.91XA Unspecified injury of right lower leg, initial encounter (principal); X58.XXXA Exposure to other specified factors, initial encounter
CPT/HCPCS: 73590; 73610

== ENCOUNTER 2024-09-08 12:28 | Emergency (ER) | payer MEDICARE, SELFPAY ==
[2024-09-08 12:43] VITALS: BP 109/59; PULSE 88; RESP 16; TEMP 36.6; O2SAT 95
--- OUTSIDE RECORDS SUMMARY | 2024-09-08 12:59 | XMS_ITS | CCD ---
Author Name Interface, [id number] [facility] [place] [address] [facility] [place] [address] Allergies and Adverse Reactions Reason for Visit Functional Status Medications Problems Social History
--- OUTSIDE RECORDS SUMMARY | 2024-09-08 12:59 | XMS_ITS | Continuity of Care Document ---
Author Name [facility] Organization [facility] Care Team Providers Care Leather Seasoner Name Role Phone [facility] Unavailable Unavailable Problems Combined list of problems from Department of Defense and Veterans Affairs facilities. It does not include entries that were removed or entered in error. Problem Status Onset Date Problem Type Date of Resolution Comments Source Alopecia Areata * (ICD-9-CM 704.01/SNOMED 2 M-73183) Active Condition [facility] Benign prostatic hyperplasia Active Condition [facility] Benign prostatic hyperplasia Active Condition [facility] Chest Wall Pain (ICD-9-CM 786.52) Active Condition [facility] Dermatitis * (ICD-9-CM 692.9) Active Condition [facility] Health Maintenance (ICD-9-CM V65.9) Active Condition [facility] Herpes Simplex * (ICD-9-CM 054.9) Active Condition [facility] Hyperglycemia * (ICD-9-CM 790.29) Active Condition [facility] Hyperlipidemia Active Condition [facility] Male erectile disorder (ICD-9-CM 302.72/607.84) Active Condition [facility] Obstructive chronic bronchitis, without mention of acute exacerbation (ICD-9-CM Active Condition [facility] OSTEOARTHROSIS-MUL T SITE Active Condition [facility] Other abnormality of urination Active Condition [facility] Overweight (ICD-9-CM 278.02) Active Condition [facility] Psoriasis * (ICD-9-CM 696.1) Active Condition [facility] Tobacco Abuse Active Condition [facility] Tobacco Use Disorder * (ICD-9-CM 305.1) Active Condition [facility] 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) Inactive Condition 02/27/2010 [facility] Medications Combined list of outpatient medications [...] DAY ORAL ACTIVE GACETA,AL DENIS B 2011 [facility] COENZYME Q10 CAP/TAB TAKE ONE TABLET BY MOUTH EVERY DAY ORAL ACTIVE GACETA,AL DENIS B 2009 [facility] FISH OIL 1000MG CAP,ORAL TAKE 1 CAPSULE BY MOUTH EVERY DAY ORAL ACTIVE GACETA,AL DENIS B 2009 [facility] LYSINE TAB TAKE 1 TAB BY MOUTH EVERY DAY ORAL ACTIVE GACETA,AL DENIS B 2011 [facility] NON-VA VITAMIN D TAB TAKE 1000 UNITS BY MOUTH EVERY DAY ORAL ACTIVE GACETA,AL DENIS B 2009 [facility] VITAMIN B-12 CAP/ TAB TAKE 1 TAB BY MOUTH EVERY DAY ORAL ACTIVE GACETA,AL DENIS B 2011 [facility] VITAMIN E 400UNT CAP TAKE 1 CAPSULE BY MOUTH EVERY DAY ORAL ACTIVE GACETA,AL DENIS B 2009 [facility] Immunizations Combined list of available immunizations from the Department of Defense and Veterans Affairs facilities. Immunization Series Date Given Administered By Site Reaction Lot Number CVX Code Drug Paragliding Instructor Status Comments Source INFLUENZA, UNSPECIFIED FORMULATION 2010 88 complet ed [facility] INFLUENZA, UNSPECIFIED FORMULATION 2009 88 complet ed [facility] FLU,3 YRS (HISTORICAL) 2008 88 complet ed [facility] PNEUMOCOCCAL, UNSPECIFIED FORMULATION 2008 109 complet ed [facility] TD(ADULT) UNSPECIFIED FORMULATION 2003 139 complet ed [facility] TD(ADULT) UNSPECIFIED FORMULATION 2003 139 complet ed Patient states he received shot < 10 years ago. [facility] Social History Combined list of available smoking, tobacco, and other social history from Department of Defense and Veterans Affairs facilities. Social History Type Response Date Comment Sourc e Tobacco smoking status NHIS TOBACCO CURRENT USER 07/30/2011 today. [facility] History of tobacco use TOBACCO CURRENT USER 02/06/2011 today [facility] History of tobacco use TOBACCO CURRENT USER 02/27/2010 Today. [facility] History of tobacco use CURRENT TOBACCO USE 06/21/2009 [facility] History of tobacco use TOBACCO CURRENT USER 10/20/2008 current [facility] History of tobacco use TOBACCO CURRENT USER 10/08/2008 current [facility] History of tobacco use TOBACCO CURRENT USER 08/05/2006 TODAY [facility] History of tobacco use TOBACCO CURRENT USER 07/04/2006 today [facility] History of tobacco use LIFETIME NON-TOBACCO USER 10/12/2004 [facility] History of tobacco use CURRENTLY SMOKES 05/28/2003 36+ YRS [facility] History of tobacco use CURRENTLY SMOKES 06/11/2002 since age 19 [facility] History of tobacco use CURRENTLY SMOKES 09/09/2001 31 years [facility] History of tobacco use CURRENTLY SMOKES 07/21/2001 36 years [facility]
--- OUTSIDE RECORDS SUMMARY | 2024-09-08 12:59 | XMS_ITS | CCD ---
Author Name Interface, [id number] [facility] [place] [address] [facility] [place] [address] Allergies and Adverse Reactions Reason for Visit Functional Status Medications Problems Social History
--- OUTSIDE RECORDS SUMMARY | 2024-09-08 12:59 | XMS_ITS | Patient Health Record ---
Author Organization [facility]LISTED [facility]AC[facility] Address [address] [facility] [address] [address] Care Team Providers Care Finance And Administration Manager Name Role Phone Unpanelled Primary Care Provider Unavailabl e Reason For Referral No Information Medications Medication SIG (Take, Route, Frequency, Duration) Notes Start Date End Date Status Naproxen 500MG Tablet Naproxen 500MG TabletOriginal MedicationNaproxen 500MG Tablet *Reorder from Collibra for eRx and Interaction Alerts* 07/24/2019 Active Fluticasone Propionate 50MCGACT Suspension Fluticasone Propionate 50MCGACT SuspensionOriginal MedicationFluticasone Propionate 50MCGACT Suspension *Reorder from Collibra for eRx and Interaction Alerts* 07/24/2019 Active Problems Problem Type SNOMED Code ICD Code Onset Dates Problem Status W/U Status Risk Notes Problem 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 (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.8) 0 Active confirmed Problem Polyp of colon (13088648) Polyp of colon (K63.5) 0 Active confirmed Problem Tremor (64034239) Tremor, unspecified (R25.1) 0 Active confirmed Problem Mixed hyperlipidemia (066731478) Hyperlipidemia, mixed (E78.2) 0 Active confirmed Problem Headache (19231239) Headache, unspecified (R51.9) 0 Active confirmed Problem Tension-type headache (705063974) Headache, tension (G44.209) 0 Active confirmed Problem Allergic rhinitis (44758158) Other allergic rhinitis (J30.8) 0 Active confirmed Plan Of Treatment No Information Insurance Providers Payer Name Payer Address Payer Phone Subscriber Number Group Number Insured Name Patient Relationship to Insured Coverage Start Date Coverage End Date [facility] [employer] [address] [place] [id number] [phone] [id number] MAIT HENDERSON Self - patient is the insured
--- OUTSIDE RECORDS SUMMARY | 2024-09-08 12:59 | XMS_ITS | Clinical Summary ---
Author Organization [facility] Address [address] [place] [address] Care Team Providers Care Administrative Services Specialist Name Role Phone Sundeep Whitfield MD Primary Care Provider [phone] Source Comments [facility],non-owned Affiliates and Associated Physician Practices is amultiple site organization consisting of ambulatory clinics and hospital sitesin [place], [place], [place] and [place]. This disclosure is being madepursuant to the Care Everywhere program and may not contain all information available regarding this patient. 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 on file Not on file Not on file Last Filed Vital Signs Vital Sign Reading Time Taken Comments Blood Pressure 136/68 05/18/2024 1:12 PM BEHAVIORAL HEALTH RN Pulse 62 05/18/2024 1:12 PM BEHAVIORAL HEALTH RN Temperature 36.5 C (97.7 F) 01/06/2024 11:32 AM CDT Respiratory Rate 18 05/20/2023 11:3 5 AM BEHAVIORAL HEALTH RN Oxygen Saturation 97% 05/18/2024 1:12 PM BEHAVIORAL HEALTH RN Inhaled Oxygen Concentration - - Weight 107.1 kg (236 lb 3.2 oz) 05/18/2024 1:12 PM BEHAVIORAL HEALTH RN Height 175.3 cm (5' 9) 05/18/2024 1:12 PM BEHAVIORAL HEALTH RN Body Mass Index 34.88 05/18/2024 1:12 PM BEHAVIORAL HEALTH RN Plan of Treatment Upcoming Encounters Date Type Department Care Team (Late st Contact Info) Description 11/16/2024 10:00 AM CDT Office Visit [facility] [address] [place] [id number] Beth Bain FARTUN-HRIS MANAGER [address] [facility] [address] [place] [address] Health Maintenance Due Date Last Done Comments [...] Twinrix 3-dose series) 03/30/2022 03/02/2022 COVID-19 VACCINE ( season) 2023 01/10/2021, 06/03/2020, 05/06/2020 DEPRESSION SCREENING 03/25/2024 05/20/2023, 10/03/2022, 07/21/2021 MEDICARE AWV CALENDAR YEAR 2024 05/20/2023, 10/03/2022, 07/21/2021, Additional history exists COLON MONITORING 10/19/2026 10/19/2016 COLONOSCOPY - COLON CA SCREENING 10/19/2026 10/19/2016 Colorectal Cancer Screening 10/19/2026 SCREENING FOR DIABETES 05/20/2027 , 01/10/2024, 12/10/2023, Additional history exists PNEUMOCOCCAL VACCINE [...] PANEL (CALCIUM TOTAL) Routine 05/20/2024 8:03 AM BEHAVIORAL HEALTH RN Chronic systolic heart failure Persistent atrial fibrillation Chronic anticoagulation Mixed hyperlipidemia S/P ablation of atrial fibrillation Heart failure with improved ejection fraction (HFimpEF) Chronic HFrEF (heart failure with reduced ejection fraction) US AAA SCREENING Routine 10/31/2022 11:3 6 AM CDT Screening for abdominal aortic aneurysm COLONOSCOPY 10/19/2016 from Last 3 Months or Most Recently Relevant to Health Maintenance Results * (ABNORMAL) BASIC METABOLIC PANEL (CALCIUM TOTAL) (05/20/2024 8:03 AM BEHAVIORAL HEALTH RN) Glucose 105(H) 70 - 99 mg/dL [facility] [...] BLOOD SPECIMEN / Unknown 05/20/2024 8:03 AM BEHAVIORAL HEALTH RN 05/20/2024 Narrative [facility] INSURANCE BILL - 05/21/2024 3:06 AM BEHAVIORAL HEALTH RN Performed at: [address] [place] [id number] Brick Paver: Candido Benavidez PhD, Phone: [phone] Martin Collins MD LAB - CHEMISTRY ORDERABLES Fi nal Result [facility] INSURANCE BILL [address] [place] [address] * US AAA SCREENING (10/31/2022 11:36 AM CDT) Anatomical Region Laterality Modality Abdomen Ultrasound 10/31/2022 11:4 1 AM CDT Impressions 10/31/2022 11:50 AM CDT IMPRESSION: Mild atherosclerosis with no aneurysm, dissection or other abnormality identified. > Interpreting Provider: Manjinder uBeno MD on 10/31/2022 11:50 AM Narrative 10/31/2022 11:50 AM CDT PROCEDURE: US AAA SCREENING, DATE/TIME OF EXAM: 10/31/2022 11:36 AM, LOCATION [facility] INDICATION: Z13.6: Encounter for screening for cardiovascular [...] DATE/TIME OF EXAM: 10/31/2022 11:36 AM, LOCATION [facility] INDICATION: Z13.6: Encounter for screening for cardiovascular [...] Manjinder Bueno MD on 10/31/2022 11:50 AM us Sami Whitehead MD ORDERABLES Final Resu lt * COLONOSCOPY (10/19/2016) 10/19/2016 Narrative 10/19/2016 Ordered by an unspecified provider. us Scanned Document SCANNING ONLY Final Result from Last 3 Months or Most Recently Relevant to Health Maintenance Insurance [facility] MEDICARE ADV AETNA MEDICARE ADV Advance Directives * Full Code (Latest Code Status on File) Date Activated Date Inactivated Comments 01/16/2022 4:41 PM 01/17/2022 1:46 PM * Full Code Date Activated Date Inactivated Comments 10/31/2021 8:55 AM 11/04/2021 11:16 AM Care Teams Administrative Services Specialist Relationship Specialty Start Date End Date Sundeep Whitfield MD [address] [place] [phone] PCP - General Family Medicine 11/18/23
--- OUTSIDE RECORDS SUMMARY | 2024-09-08 13:37 | XMS_ITS | CCD ---
Author Name Interface, [id number] [facility] [place] [address] [facility] [place] [address] Allergies and Adverse Reactions Medication/Group Name Reaction [...] TABLET( S) daily 03/07/20 18 active 018 Nszxp-J-Favlraftwa ase Oral PO 1.0 TABLET( S) as directed 03/07/20 18 active 018 Inez-3 Fatty Acids Oral PO 1.0 CAPSULE (S) daily 03/07/20 18 active Problems Diagnosis Status Date of Diagnosi s Body mass index [BMI] 32.0-32.9, adult Inactive Social History Date Name Value Sex Male
--- OUTSIDE RECORDS SUMMARY | 2024-09-08 13:37 | XMS_ITS | Clinical Summary ---
Author Organization [facility] Address [address] [place] [address] Care Team Providers Care Engineering Specialist Technician Name Role Phone Sundeep Whitfield MD Primary Care Provider [phone] [facility],non-owned Affiliates and Associated Physician Practices is amultiple site organization consisting of ambulatory clinics and hospital sitesin [place], [place], [place] and [place]. This disclosure is being madepursuant to the Care Everywhere program and may not contain all information available regarding this patient. Last updated 17.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 Not on file Not on file Last Filed Vital Signs Vital Sign Reading Time Taken Comments Blood Pressure 136/68 05/18/2024 1:12 PM MAINTENANCE SHOP WELDER Pulse 62 05/18/2024 1:12 PM MAINTENANCE SHOP WELDER Temperature 36.5 C (97.7 F) 01/06/2024 11:32 AM CDT Respiratory Rate 18 05/20/2023 11:3 5 AM MAINTENANCE SHOP WELDER Oxygen Saturation 97% 05/18/2024 1:12 PM MAINTENANCE SHOP WELDER Inhaled Oxygen Concentration - - Weight 107.1 kg (236 lb 3.2 oz) 05/18/2024 1:12 PM MAINTENANCE SHOP WELDER Height 175.3 cm (5' 9) 05/18/2024 1:12 PM MAINTENANCE SHOP WELDER Body Mass Index 34.88 05/18/2024 1:12 PM MAINTENANCE SHOP WELDER Plan of Treatment Upcoming Encounters Date Type Department Care Team (Late st Contact Info) Description 11/16/2024 10:00 AM CDT Office Visit [facility] V[facility] [address] [place] [address] Beth Bain FARTUN-PARTITION SETTER [address] [facility] [address] [place] [address] Health Maintenance Due Date Last Done Comments [...] PANEL (CALCIUM TOTAL) Routine 05/20/2024 8:03 AM MAINTENANCE SHOP WELDER Chronic systolic heart failure Persistent atrial fibrillation [...] METABOLIC PANEL (CALCIUM TOTAL) (05/20/2024 8:03 AM MAINTENANCE SHOP WELDER) Glucose 105(H) 70 - 99 mg/dL [facility] [...] BLOOD SPECIMEN / Unknown 05/20/2024 8:03 AM MAINTENANCE SHOP WELDER 05/20/2024 Narrative [facility] INSURANCE BILL - 05/21/2024 3:06 AM MAINTENANCE SHOP WELDER Performed at: [address] [place] [id number] Rotating Equipment Specialist: Candido Benavidez PhD, Phone: [phone] Martin Collins MD LAB - CHEMISTRY ORDERABLES Fi nal Result [facility] INSURANCE BILL [address] [place] [address] * US AAA SCREENING (10/31/2022 11:36 AM CDT) Anatomical Region Laterality Modality Abdomen Ultrasound 10/31/2022 11:4 1 AM CDT Impressions 10/31/2022 11:50 AM CDT IMPRESSION: Mild atherosclerosis with no aneurysm, dissection or other abnormality identified. > Interpreting Provider: Manjinder Bueno MD on 10/31/2022 11:50 AM Narrative 10/31/2022 11:50 AM CDT PROCEDURE: US AAA SCREENING, DATE/TIME OF EXAM: 10/31/2022 11:36 AM, LOCATION [facility] INDICATION: Z13.6: Encounter for screening for cardiovascular [...] DATE/TIME OF EXAM: 10/31/2022 11:36 AM, LOCATION [facility] INDICATION: Z13.6: Encounter for screening for cardiovascular [...] Most Recently Relevant to Health Maintenance Insurance [facility] MEDICARE ADV AETNA MEDICARE ADV Advance Directives * Full Code (Latest Code Status on File) Date Activated Date Inactivated Comments 01/16/2022 4:41 PM 01/17/2022 1:46 PM * Full Code Date Activated Date Inactivated Comments 10/31/2021 8:55 AM 11/04/2021 11:16 AM Care Teams Engineering Specialist Technician Relationship Specialty Start Date End Date Sundeep Whitfield MD [address] [place] [phone] PCP - General Family Medicine 11/18/23
--- OUTSIDE RECORDS SUMMARY | 2024-09-08 13:38 | XMS_ITS | Continuity of Care Document ---
Author Name [facility] Organization [facility] Care Team Providers Care Nail Specialist Name Role Phone [facility] Unavailable Unavailable Problems Combined list of problems from Department of Defense and Veterans Affairs facilities. It does not include entries that were removed or entered in error. Problem Status Onset Date Problem Type Date of Resolution Comments Source Alopecia Areata * (ICD-9-CM 704.01/SNOMED 2 [id number]) Active Condition [facility] Benign prostatic hyperplasia Active Condition [facility] Benign prostatic hyperplasia Active Condition [facility] Chest Wall Pain (ICD-9-CM 786.52) Active Condition [facility] Dermatitis * (ICD-9-CM 692.9) Active Condition [facility] Health Maintenance (ICD-9-CM V65.9) Active Condition [facility] Herpes Simplex * (ICD-9-CM 054.9) Active Condition [facility] Hyperglycemia * (ICD-9-CM 790.29) Active Condition [facility] Hyperlipidemia Active Condition [facility] Male erectile disorder (ICD-9-CM 302.72/607.84) Active Condition [facility] Obstructive chronic bronchitis, without mention of acute exacerbation (ICD-9-CM Active Condition [facility] OSTEOARTHROSIS-MUL T SITE Active Condition [facility] Other abnormality of urination Active Condition [facility] Overweight (ICD-9-CM 278.02) Active Condition [facility] Psoriasis * (ICD-9-CM 696.1) Active Condition [facility] Tobacco Abuse Active Condition [facility] Tobacco Use Disorder * (ICD-9-CM 305.1) Active Condition [facility] 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) Inactive Condition 02/27/2010 [facility] Medications Combined list of outpatient medications from [...] DAY ORAL ACTIVE GACETA,AL DENIS B 2011 [facility] COENZYME Q10 CAP/TAB TAKE ONE TABLET BY MOUTH EVERY DAY ORAL ACTIVE GACETA,AL DENIS B 2009 [facility] FISH OIL 1000MG CAP,ORAL TAKE 1 CAPSULE BY MOUTH EVERY DAY ORAL ACTIVE GACETA,AL DENIS B 2009 [facility] LYSINE TAB TAKE 1 TAB BY MOUTH EVERY DAY ORAL ACTIVE GACETA,AL DENIS B 2011 [facility] NON-VA VITAMIN D TAB TAKE 1000 UNITS BY MOUTH EVERY DAY ORAL ACTIVE GACETA,AL DENIS B 2009 [facility] VITAMIN B-12 CAP/ TAB TAKE 1 TAB BY MOUTH EVERY DAY ORAL ACTIVE GACETA,AL DENIS B 2011 [facility] VITAMIN E 400UNT CAP TAKE 1 CAPSULE BY MOUTH EVERY DAY ORAL ACTIVE GACETA,AL DENIS B 2009 [facility] Immunizations Combined list of available immunizations from the Department of Defense and Veterans Affairs facilities. Immunization Series Date Given Administered By Site Reaction Lot Number CVX Code Drug Air Defense Specialist Status Comments Source INFLUENZA, UNSPECIFIED FORMULATION 2010 88 complet ed [facility] INFLUENZA, UNSPECIFIED FORMULATION 2009 88 complet ed [facility] FLU,3 YRS (HISTORICAL) 2008 88 complet ed [facility] PNEUMOCOCCAL, UNSPECIFIED FORMULATION 2008 109 complet ed [facility] TD(ADULT) UNSPECIFIED FORMULATION 2003 139 complet ed [facility] TD(ADULT) UNSPECIFIED FORMULATION 2003 139 complet ed Patient states he received shot < 10 years ago. [facility] Social History Combined list of available smoking, tobacco, and other social history from Department of Defense and Veterans Affairs facilities. Social History Type Response Date Comment Sourc e Tobacco smoking status NHIS TOBACCO CURRENT USER 07/30/2011 today. [facility] History of tobacco use TOBACCO CURRENT USER 02/06/2011 today [facility] History of tobacco use TOBACCO CURRENT USER 02/27/2010 Today. [facility] History of tobacco use CURRENT TOBACCO USE 06/21/2009 [facility] History of tobacco use TOBACCO CURRENT USER 10/20/2008 current [facility] History of tobacco use TOBACCO CURRENT USER 10/08/2008 current [facility] History of tobacco use TOBACCO CURRENT USER 08/05/2006 TODAY [facility] History of tobacco use TOBACCO CURRENT USER 07/04/2006 today [facility] History of tobacco use LIFETIME NON-TOBACCO USER 10/12/2004 [facility] History of tobacco use CURRENTLY SMOKES 05/28/2003 36+ YRS [facility] History of tobacco use CURRENTLY SMOKES 06/11/2002 since age 19 [facility] History of tobacco use CURRENTLY SMOKES 09/09/2001 31 years [facility] History of tobacco use CURRENTLY SMOKES 07/21/2001 36 years [facility]
--- OUTSIDE RECORDS SUMMARY | 2024-09-08 13:38 | XMS_ITS | CCD ---
Author Name Interface, [id number] [facility] [place] [address] [facility] [place] [address] Allergies and Adverse Reactions Medication/Group Name Reaction [...] TABLET( S) daily 03/07/20 18 active 018 Hhvvl-Q-Zhtszgkmka ase Oral PO 1.0 TABLET( S) as directed 03/07/20 18 active 018 [place]-3 Fatty Acids Oral PO 1.0 CAPSULE (S) daily 03/07/20 18 active Problems Diagnosis Status Date of Diagnosi s Body mass index [BMI] 32.0-32.9, adult Inactive Social History Date Name Value Sex Male
--- NOTE | 2024-09-08 14:01 | PCWOUND ---
Spoke with ER physician after receiving referral for leg wound. No need for wound care to come and see wound as wound is not bleeding at this time and patient will be seen at wound center on 09/10/24. ER nurse to apply Silver gel to wound and cover with vaseline gauze and dry gauze dressing.
--- NOTE | 2024-09-08 14:11 | ED_ITS ---
HPI - Wound/Laceration General Chief Complaint: Wound/Laceration Stated Complaint: unable to stop bleeding from wound Time Seen by Provider: 09/08/24 12:37 Source: patient Mode of arrival: ambulatory Limitations: no limitations History of Present Illness HPI narrative: Patient is a 74-year-old male who presents the ED with report of a chronic wound to his right lower extremity. Patient has had a large wound to his right lower extremity for the past couple of months. Resulted from a traumatic hematoma that de-roofed, resulting in a large ulcerated wound to his right lower nj. He has been seeing wound care since last week for this. Today, when changing the bandage, the wound began bleeding. He was unable to control the bleeding at home and prompted here for further evaluation. Patient is on Eliquis due to history of AFib. Denies fevers. Has next wound care appointment on . Related Data Allergies Allergy/AdvReac Type Severity Reaction Status Date / Time No Known Allergies Allergy Verified 09/08/24 12:48 Review of Systems Review of Systems: All systems reviewed & are unremarkable except as noted in HPI. All systems reviewed & are unremarkable except as noted in HPI and below PMFSH Past Medical History Medical History custodial current use of anticoagulant A-fib CHF (congestive heart failure) Family History Family History Father Alcoholism Social History Social History Smoking packs per day: 1 Smoking cigarettes per day: 20.0 Years smoked: 30 Smoking pack-years: 30.00 Smoking status: Former smoker Tobacco type: cigarettes Smoking end date: 03/25/09 Alcohol intake: current Drinks per week: 2 Alcohol use details: beer and wine Substance use: never Substance use type: does not use Do You Feel Safe in your Home?: Yes Lack of Transportation: No Lack of Food: Never True Current Housing: I Have Housing Concerned About Future Housing: No Difficulty Paying Gas/Electric Bills: No Difficulty Paying for Meds: No Currently Unemployed: No Education: High School Diploma/GED Difficulty w/ Childcare or Family Care: No Living arrangements: with family Occupation/Education: occupation Gender identity (if verbalized by the patient): Male Sexual Orientation (if Verbalized by the Patient): Straight or Heterosexual Spiritual care concerns: No Agree to blood products: No Exam Narrative: GENERAL: Elderly but well appearing, obese with BMI of 32.2, non-toxic, in no acute distress. HEAD: Normocephalic, atraumatic. RESPIRATORY: Airway patent, respirations nonlabored. CARDIOVASCULAR: Regular rate and rhythm. Pedal pulses intact and easily palpable MUSCULOSKELETAL: Moves all extremities. Large chronic 7x5cm ulcerated wound to R lower nj, approx 0.5-1cm deep. Small area of blood pooled along inferior margin of wound, but no active bleeding. No pulsatile bleeding. Very mild erythema surrounding wound, no warmth. Sensation intact. SKIN: Warm, dry, normal color. NEURO: A&O X3. Speech clear. PSYCHIATRIC: Appropriate mood and affect. Normal interaction. Course Vital Signs Vital signs: Vital Signs Temperature 97.8 F 09/08/24 12:43 Pulse Rate 88 09/08/24 12:43 Respiratory Rate 16 09/08/24 12:43 Blood Pressure 109/59 L 09/08/24 12:43 Pulse Oximetry 95 09/08/24 12:43 Oxygen Delivery Room Air 09/08/24 12:43 Temperature 97.7 F 09/08/24 14:27 Pulse Rate 74 09/08/24 14:27 Respiratory Rate 16 09/08/24 14:27 Blood Pressure 114/63 09/08/24 14:27 Pulse Oximetry 96 09/08/24 14:27 Oxygen Delivery Room Air 09/08/24 12:43 MDM - Wound/Laceration MDM Narrative Medical decision making narrative: Chronic wound to right lower leg. No evidence of active bleeding. Discussed with Wound Care. They recommended applying silver gel to wound, Vaseline gauze, gauze bandage, they will follow-up with patient at his appointment on . No further recs at this time. Patient and family in agreement with plan. Medical Records Attestation: I reviewed the patient's medical records. Discharge Plan Discharge Clinical Impression: Non-healing wound of right lower extremity Patient Disposition: Home Condition: Stable Instructions: Antibiotic Form, Chronic Wounds (ED) Additional Instructions: Continue to bandage wound as directed. Follow-up with wound care for further evaluation. Return to the ED for new or worsening concerns. Patient Language: [place]an Prescriptions: No Action acyclovir 5 % cream 1 applic topical DAILY PRN (Reason: outbreaks) Qty: 5 5RF betamethasone valerate 0.1 % ointment 1 applic topical DAILY PRN (Reason: rash) Qty: 45 3RF Eliquis 5 mg tablet 5 mg PO BID Qty: 90 1RF sodium chloride [Sterile Saline] 0.9 % solution 1 irrig irrigation BID PRN (Reason: wound care) Qty: 2000 2RF metoprolol succinate 25 mg tablet extended release 24 hr See Rx Instructions .ROUTE .COMPLEX Qty: 90 1RF Dose Instruction: TAKE 1 TABLET BY MOUTH EVERYDAY AT BEDTIME Rx Instructions: TAKE 1 TABLET BY MOUTH EVERYDAY AT BEDTIME atorvastatin 40 mg tablet 40 mg PO HS Qty: 90 1RF losartan 25 mg tablet 25 mg PO DAILY Qty: 90 1RF cholecalciferol (vitamin D3) 1,250 mcg (50,000 unit) capsule See Rx Instructions .ROUTE .COMPLEX Qty: 12 1RF Dose Instruction: TAKE 1 CAPSULE BY MOUTH WEEKLY Rx Instructions: TAKE 1 CAPSULE BY MOUTH WEEKLY Follow-up/Referrals: Sundeep Whitfield MD [Primary Care Provider] - Time of Disposition: 14:12
[2024-09-08 14:27] VITALS: BP 114/63; PULSE 74; RESP 16; TEMP 36.5; O2SAT 96
[2024-09-08] MEDS: SILVER SULFADIAZINE 1% CR 50 GM JAR (*BKC) 1 APPLIC TOPICAL (14:27)
== END 2024-09-08 14:30 | disposition home or self-care (01) ==
PROVIDERS: Emergency Provider Physician Assistant; PCP Family Medicine
DX: S81.801D Unspecified open wound, right lower leg, subsequent encounter (principal); W22.8XXD Striking against or struck by other objects, subsequent encounter; I48.91 Unspecified atrial fibrillation; I50.9 Heart failure, unspecified; Z87.891 Personal history of nicotine dependence; Z79.01 Long term (current) use of anticoagulants; Z79.899 Other long term (current) drug therapy
CPT/HCPCS: 99282; A9270

== ENCOUNTER 2024-12-02 07:27 | Outpatient (RCR) | payer MEDICARE, SELFPAY ==
[2024-09-04 09:56] VITALS: BMI 32.5
== END 2024-12-03 23:59 | disposition home or self-care (01) ==
LOC: ANHWOC 07:27
PROVIDERS: PCP Family Medicine; Visit Provider Nurse Practitioner Family
DX: S89.91XD Unspecified injury of right lower leg, subsequent encounter (principal); S80.10XD Contusion of unspecified lower leg, subsequent encounter
CPT/HCPCS: 99212; 99213; 99214; 99215; G0463